=== PATIENT | male | born 1955 | race Caucasian/White ===

== ENCOUNTER → 2017-09-12 | Outpatient (CLI) | payer OTHER ==
[~2017-09-12] MED LIST: ALBU90OI; Advil200 M1 PO; FISH1000 PO; Miralax17 GM PO; Multivitamin1 EAC1 PO; Norco 10-325 T1 EACH PO; Omeprazole20 M1 PO; Prilosec Otc20 MG PO; Vitamin C1000 M1 PO; Zofran Odt4 MG PO
[2017-09-12 12:25] LABS: BASOPHILS ABSOLUTE AUTO 0.04 K/mm3 (0.00-0.23); BASOPHILS PERCENT AUTO 0 % (0-2); EOSINOPHILS ABSOLUTE AUTO 0.02 K/mm3 (0.00-0.68); EOSINOPHILS PERCENT AUTO 0 % (0-6); Hematocrit 48.5 % (37.0-53.0); Hemoglobin 16.5 g/dL (13.5-17.5); IMMATURE GRAN ABSOLUTE AUTO 0.03 K/mm3 (0.00-0.10); IMMATURE GRAN PERCENT AUTO 0 % (0-1); LYMPHOCYTES ABSOLUTE AUTO 0.74 K/mm3 (0.84-5.20); LYMPHOCYTES PERCENT AUTO 5 % (21-46); MONOCYTES ABSOLUTE AUTO 0.51 K/mm3 (0.16-1.47); MONOCYTES PERCENT AUTO 4 % (4-13); Mean Corpuscular HGB 29.8 pg (26.0-34.0); Mean Corpuscular Volume 88 fL (80-100); Mean Platelet Volume 9.5 fL (9.1-12.4); NEUTROPHILS ABSOLUTE AUTO 12.46 K/mm3 (1.96-9.15); NEUTROPHILS PERCENT AUTO 90 % (41-73); Platelet Count 235 K/mm3 (150-400); RDW Coefficient Variation 12.5 % (11.7-14.2); RDW Standard Deviation 39.8 fL (35.1-46.3); Red Blood Cell Count 5.53 M/mm3 (4.30-5.90)
[2017-09-12 12:38] LABS: Alanine Aminotransfer (ALT/SGP 37 U/L (12-78); Albumin, Blood 4.1 g/dL (3.4-5.0); Albumin/Globulin Ratio 1.1 (0.8-1.8); Alk Phos 102 U/L (40-126); Anion Gap 6 mmol/L (6-16); Aspartate Aminotrans (AST/SGOT 23 U/L (12-37); Bilirubin, Total 0.6 mg/dL (0.1-1.0); Blood Urea Nitrogen 22 mg/dL (8-24); CO2, Blood 29 mmol/L (21-32); Calcium, Blood 9.5 mg/dL (8.5-10.1); Chloride, Blood 101 mmol/L (98-108); Globulin, Blood 3.8 g/dL (2.2-4.0); Glomerular Filtration Rate >60 (60-); Glucose, Blood 108 mg/dL (70-99); Sodium, Blood 136 mmol/L (136-145); Total Protein, Blood 7.9 g/dL (6.4-8.2)
== END | disposition home or self-care (01) ==
LOC: LAB EV 12:18
PROVIDERS: Physician Assistant Surgical
DX: R10.9 Unspecified abdominal pain (principal)
CPT/HCPCS: 80053; 83690; 85025

== ENCOUNTER 2017-09-14 08:57 | Emergency (ER) | payer OTHER ==
[~2017-09-14] VITALS: Ht 177.8 cm; Wt 68.0 kg
[~2017-09-14 08:57] MED LIST changes: -Miralax17 GM PO; -Prilosec Otc20 MG PO; -Zofran Odt4 MG PO
[2017-09-14 10:04] LABS: BASOPHILS ABSOLUTE AUTO 0.03 K/mm3 (0.00-0.23); BASOPHILS PERCENT AUTO 0 % (0-2); EOSINOPHILS ABSOLUTE AUTO 0.03 K/mm3 (0.00-0.68); EOSINOPHILS PERCENT AUTO 0 % (0-6); Hematocrit 47.1 % (37.0-53.0); Hemoglobin 15.7 g/dL (13.5-17.5); IMMATURE GRAN ABSOLUTE AUTO 0.02 K/mm3 (0.00-0.10); IMMATURE GRAN PERCENT AUTO 0 % (0-1); LYMPHOCYTES ABSOLUTE AUTO 0.68 K/mm3 (0.84-5.20); LYMPHOCYTES PERCENT AUTO 7 % (21-46); MONOCYTES ABSOLUTE AUTO 0.54 K/mm3 (0.16-1.47); MONOCYTES PERCENT AUTO 6 % (4-13); Mean Corpuscular HGB 29.4 pg (26.0-34.0); Mean Corpuscular HGB Conc 33.3 g/dL (31.5-36.5); Mean Corpuscular Volume 88 fL (80-100); Mean Platelet Volume 9.5 fL (9.1-12.4); NEUTROPHILS ABSOLUTE AUTO 7.84 K/mm3 (1.96-9.15); NEUTROPHILS PERCENT AUTO 86 % (41-73); Platelet Count 208 K/mm3 (150-400); RDW Coefficient Variation 12.2 % (11.7-14.2); Red Blood Cell Count 5.34 M/mm3 (4.30-5.90); White Blood Cell Count 9.14 K/mm3 (4.00-11.30)
[2017-09-14 10:22] LABS: Alanine Aminotransfer (ALT/SGP 25 U/L (12-78); Albumin, Blood 3.2 g/dL (3.4-5.0); Albumin/Globulin Ratio 0.7 (0.8-1.8); Alk Phos 89 U/L (50-136); Anion Gap 7 mmol/L (6-16); Aspartate Aminotrans (AST/SGOT 19 U/L (12-37); Bilirubin, Total 0.8 mg/dL (0.1-1.0); Blood Urea Nitrogen 23 mg/dL (8-24); CO2, Blood 26 mmol/L (21-32); Calcium, Blood 8.6 mg/dL (8.5-10.1); Chloride, Blood 105 mmol/L (98-108); Creatinine, Blood 0.79 mg/dL (0.60-1.20); Globulin, Blood 4.5 g/dL (2.2-4.0); Glomerular Filtration Rate >60 (60-); Glucose, Blood 95 mg/dL (70-99); Potassium, Blood 3.8 mmol/L (3.5-5.5); Sodium, Blood 138 mmol/L (136-145); Total Protein, Blood 7.7 g/dL (6.4-8.2)
[2017-09-14] MEDS ORDERED: Zofran Odt4 MG PO (10:50)
[2017-09-14] MEDS ORDERED: Miralax17 GM PO (10:50)
[2017-09-14 11:48] LABS: Source, Urine Clean Catch
[2017-09-14 11:54] LABS: Bilirubin, Urine Neg (Neg); Blood, Urine 2+ (Neg); Glucose Qualitative, Urine Neg (Neg); Ketones, Urine 3+ (Neg); Leukocyte Esterase, Urine 1+ (Neg); Nitrite, Urine Neg (Neg); Protein, Urine 2+ (Neg); Urobilinogen, Urine 1+ (Normal)
[2017-09-14 12:13] LABS: Appearance, Urine Hazy (Clear); Color, Urine Yellow (P-Yellow)
[2017-09-14 12:14] LABS: Red Blood Cells, Urine Not Seen /hpf (0-2); White Blood Cells, Urine 0-2 /hpf (0-5)
[2017-09-14 12:15] LABS: Bacteria Few /hpf; Mucus Heavy (0-Heavy); Squamous Epithelial Cells Not Seen /hpf (Few)
[2017-09-14] MEDS ORDERED: Prilosec Otc20 MG PO (13:18)
== END 2017-09-14 13:30 | disposition home or self-care (01) ==
LOC: ER 08:57
PROVIDERS: Emergency Medicine
DX: R11.2 Nausea with vomiting, unspecified (principal); Z87.891 Personal history of nicotine dependence
CPT/HCPCS: 36415; 80053; 81001; 83690; 85025; 96361; 96374; 96375; 99283; J1200; J1630; J2405; J2765; J7030

== ENCOUNTER 2018-11-18 08:25 | Day surgery (SDC) | payer OTHER ==
[~2018-11-18] VITALS: Ht 175.3 cm; Wt 70.8 kg
[~2018-11-18 08:25] MED LIST changes: +Miralax17 GM PO; +Prilosec Otc20 MG PO; +Zofran Odt4 MG PO
== END 2018-11-18 11:22 | disposition home or self-care (01) ==
LOC: ORSCSDS 08:25
PROVIDERS: Internal Medicine Gastroenterology
PROC: 0DB58ZX Excision of Esophagus, Via Natural or Artificial Opening Endoscopic, Diagnostic (ICD-10-PCS; principal; 2018-11-18 09:45)
PROC: 0DB68ZX Excision of Stomach, Via Natural or Artificial Opening Endoscopic, Diagnostic (ICD-10-PCS; principal; 2018-11-18 09:45)
PROC: 0DJD8ZZ Inspection of Lower Intestinal Tract, Via Natural or Artificial Opening Endoscopic (ICD-10-PCS; principal; 2018-11-18 09:45)
DX: K21.9 Gastro-esophageal reflux disease without esophagitis (principal); K22.70 Barrett's esophagus without dysplasia; K44.9 Diaphragmatic hernia without obstruction or gangrene; K29.60 Other gastritis without bleeding; K57.30 Diverticulosis of large intestine without perforation or abscess without bleeding; R19.5 Other fecal abnormalities; F17.210 Nicotine dependence, cigarettes, uncomplicated
CPT/HCPCS: 87081; 88305; J2405; J2704; J7120

== ENCOUNTER 2022-01-25 07:46 | Day surgery (SDC) | payer MEDICARE ==
[~2022-01-25] VITALS: Ht 175.3 cm; Wt 72.2 kg
--- NOTE | 2022-01-25 08:24 | NUR ---
01/25/22 0824 PELON FERNANDEZ 2 ATTEMPTS AT IV. FIRST ATTEMPT BY MA IN R HAND UNABLE TO ADVANCE. SECOND ATTEMPT BY MA IN R FOREARM SUCCESSFUL.
== END 2022-01-25 09:38 | disposition home or self-care (01) ==
LOC: ORSCSDS 07:46
PROVIDERS: Internal Medicine Gastroenterology
PROC: 0DB58ZX Excision of Esophagus, Via Natural or Artificial Opening Endoscopic, Diagnostic (ICD-10-PCS; principal; 2022-01-25 09:00)
DX: K22.70 Barrett's esophagus without dysplasia (principal); F17.210 Nicotine dependence, cigarettes, uncomplicated; Z79.899 Other long term (current) drug therapy
CPT/HCPCS: 88305; 88312; J2704; J7120

== ENCOUNTER 2025-01-28 10:47 | Inpatient (IN) | payer OTHER ==
[2025-01-28] VITALS (37 sets, daily range): BP systolic 70–119; BP diastolic 29–91
[~2025-01-28] VITALS: Ht 177.8 cm; Wt 71.7 kg
[~2025-01-28 10:47] MED LIST changes: +TAMS.4ER PO
[2025-01-28 11:07] LABS: Calcium, Ionized (POC) 1.28 mmol/L (1.10-1.46); Chloride (POC) 104 mmol/L (98-108); Creatinine (POC) 1.3 mg/dL (0.8-1.3); Glucose (ISTAT POC) 375 mg/dL (70-99); Hematocrit (POC) 40.0 % (41.0-53.0); Hemoglobin (POC) 13.6 g/dL (13.5-17.5); Potassium (POC) 2.9 mmol/L (3.5-5.5); Sodium (POC) 140 mmol/L (135-148); Total CO2 (POC) 21 mmol/L (21-32)
[2025-01-28] MEDS ORDERED: Amiodarone HCl 450 MG in NS 250 ML IV SCH ×2 (11:15→19:05)
[2025-01-28] MEDS ORDERED: EPINEPHrine HCL 4 MG in NS 250 ML IV SCH (11:15)
[2025-01-28 11:19] LABS: pH Blood Venous 7.02 (7.34-7.37)
[2025-01-28 11:49] LABS: Hematocrit 41.3 % (37.0-53.0); Hemoglobin 13.2 g/dL (13.5-17.5); Mean Corpuscular HGB Conc 32.0 g/dL (31.5-36.5); Mean Corpuscular Volume 94 fL (80-100); NRBC ABSOLUTE 0.07 K/mm3 (0.00-0.02); NRBC Auto 1.3 /100 WBC (0.0-0.2); Platelet Count 172 K/mm3 (150-400); RDW Coefficient Variation 12.7 % (11.7-14.2); RDW Standard Deviation 43.8 fL (35.1-46.3)
[2025-01-28] MEDS ORDERED: Midazolam HCl 1MG / ML 2ML Vial IV ONE ×2 (11:50→16:24)
[2025-01-28 11:56] LABS: Alanine Aminotransfer (ALT/SGP 192.0 U/L (12-78); Albumin, Blood 2.4 g/dL (3.4-5.0); Albumin/Globulin Ratio 0.9 (0.8-1.8); Anion Gap 16.0 mmol/L (3-11); Aspartate Aminotrans (AST/SGOT 206.0 U/L (12-37); Bilirubin, Total 0.3 mg/dL (0.1-1.0); Blood Urea Nitrogen 22.0 mg/dL (8-24); CO2, Blood 22.0 mmol/L (21-32); Calcium, Blood 9.6 mg/dL (8.5-10.1); Chloride, Blood 108.0 mmol/L (98-108); Creatinine, Blood 0.98 mg/dL (0.60-1.20); Globulin, Blood 2.6 g/dL (2.2-4.0); Glucose, Blood 335.0 mg/dL (70-99); Magnesium, Blood 10.9 mg/dL (1.6-2.4); Potassium, Blood 3.6 mmol/L (3.5-5.5); Sodium, Blood 142.0 mmol/L (136-145); Total Protein, Blood 5.0 g/dL (6.4-8.2)
[2025-01-28] MEDS ORDERED: NS 1,000 ML IV ONE ×2 (11:59→12:35)
[2025-01-28] MEDS ORDERED: Phenylephrine HCl 100 MCG/ML-NS 10MLSYR (1MG/10ML) ONE (12:01)
[2025-01-28] MEDS ORDERED: SODIUM CHLORIDE IV ONE (12:22)
[2025-01-28] MEDS ORDERED: TIROFIBAN IV ONE (12:22)
[2025-01-28] MEDS ORDERED: [UNRECOGNIZED DRUG - OTHER] IV ONE (12:22)
[2025-01-28 12:28] LABS: BAND PERCENT MAN 12 % (0-8); BASOPHILS ABSOLUTE MAN 0.05 K/mm3 (0.00-0.23); BASOPHILS PERCENT MAN 1 % (0-2); EOSINOPHILS ABSOLUTE MAN 0.05 K/mm3 (0.00-0.68); EOSINOPHILS PERCENT MAN 1 % (0-6); LYMPHOCYTES ABSOLUTE MAN 1.73 K/mm3 (0.84-5.20); LYMPHOCYTES PERCENT MAN 32 % (21-46); METAMYELOCYTE ABSOLUTE MAN 0.43 K/mm3 (0.00-0.00); METAMYELOCYTE PERCENT MAN 8 % (0-0); MONOCYTES ABSOLUTE MAN 0.16 K/mm3 (0.16-1.47); MONOCYTES PERCENT MAN 3 % (4-13); NEUTROPHILS ABSOLUTE MAN 2.98 K/mm3 (1.96-9.15); SEG NEUTROPHILS PERCENT MAN 43 % (41-73)
[2025-01-28] MEDS ORDERED: NS 250 ML IV ONE (12:35)
[2025-01-28] MEDS ORDERED: Heparin Sodium 1000 Units/ML 10ML MDV ONE (12:35)
[2025-01-28] MEDS ORDERED: Nitroglycerin 2 MG/20 ML BTL ONE (12:36)
[2025-01-28 12:55] LABS: Anti-Xa UFH, PHA Monitoring <0.10 IU/mL; Prothrombin Time Results 12.6 Sec (9.7-11.5)
[2025-01-28] MEDS ORDERED: Verapamil HCL 2.5 MG/ML 2ML Injection ONE (12:59)
[2025-01-28 14:03] LABS: pH Blood Venous 7.29 (7.34-7.37)
[2025-01-28 14:12] LABS: U Amphetamine Screen Not Detected; U Barbituate Screen Not Detected; U Benzodiazapine Screen Not Detected; U Buprenorphine Screen Not Detected; U Cannabinoids Screen DETECTED; U Cocaine Screen Not Detected; U Methadone Screen Not Detected; U Methamphetamine Screen Not Detected; U Opiates Screen Not Detected; U Oxycodone Screen Not Detected; U Phencyclidine Screen Not Detected
[2025-01-28] MEDS ORDERED: Calcium Chloride 10% 1,000 MG in NS 50 ML IV ONE (14:15)
[2025-01-28 14:51] LABS: Alanine Aminotransfer (ALT/SGP 340.0 U/L (12-78); Albumin, Blood 3.4 g/dL (3.4-5.0); Albumin/Globulin Ratio 0.9 (0.8-1.8); Anion Gap 14.0 mmol/L (3-11); Aspartate Aminotrans (AST/SGOT 624.0 U/L (12-37); Bilirubin, Total 0.7 mg/dL (0.1-1.0); Blood Urea Nitrogen 25.0 mg/dL (8-24); CO2, Blood 19.0 mmol/L (21-32); Calcium, Blood 8.5 mg/dL (8.5-10.1); Chloride, Blood 111.0 mmol/L (98-108); Creatinine, Blood 1.05 mg/dL (0.60-1.20); Globulin, Blood 3.6 g/dL (2.2-4.0); Glucose, Blood 200.0 mg/dL (70-99); Phosphorus, Blood 3.3 mg/dL (2.5-4.9); Potassium, Blood 4.1 mmol/L (3.5-5.5); Sodium, Blood 140.0 mmol/L (136-145); Total Protein, Blood 7.0 g/dL (6.4-8.2)
[2025-01-28] MEDS ORDERED: Cetylpyridinium Chloride 1 EA MISC MT SCH ×2 (15:05→20:00)
[2025-01-28 15:16] LABS: C-REACTIVE PROTEIN, EXT RANGE 0.301 mg/dL (0.000-0.300)
[2025-01-28 15:26] LABS: CHOL/HDL RATIO 2.8; Cholesterol 182 mg/dL (50-200); HDL Cholesterol 64 mg/dL (>39); LDL/HDL RATIO 1.6; Low Density Lipoprotein Chol 102 mg/dL (0-110); Thyroid Stimulating Hormone 3.140 uIU/mL (0.360-4.800); Triglycerides 82 mg/dL (30-160); Very Low Density Lipoprot Chol 16 mg/dL (6-32)
--- NOTE | 2025-01-28 15:29 | NUR ---
"Spiritual Care | family Support Met with family in the hallway waiting area. Facilitaed some life review and introduced myself. One of the family memebers recognized this production recorder from a previous visit of another family member. Answered questions, and sought to normalize the Pt. experience. Spouse and (possibly) daughter both verbalzied gratitude for the spiritual care visit."
[2025-01-28] MEDS ORDERED: Hydrogen Peroxide 1.5 % Solution MT SCH ×2 (16:00)
[2025-01-28] MEDS ORDERED: Sodium Bicarb 8.4% 50 mEq Syringe IV ONE (16:24)
[2025-01-28] MEDS ORDERED: Magnesium Sulfate 500 MG / ML 2ML Vial IV ONE (16:24)
[2025-01-28] MEDS ORDERED: Heparin Sodium,Porcine 5,000 UNIT/0.5 ML SDV SC ONE (16:24)
[2025-01-28] MEDS ORDERED: AMLO5 PO (16:53)
[2025-01-28] MEDS ORDERED: TADA10TA PO (16:54)
[2025-01-28] MEDS ORDERED: Insulin Human Lispro 100 Units/ML 3ML Syringe SC SCH (18:00)
--- NOTE | 2025-01-28 18:47 | NUR ---
Summary. Pt arrived to ICU on ventilator with levophed and propofol infusing. Pt continues on vent. Propofol paused at 1745 for sedation vacation. Levophed infusion unchanged, remains at 12 mcg/min. OG tube in place, to low continuous suction. PICC line placed for central access. Temp probe andrews draining to gravity. Cooling blanket on pt for temperature management, see protocol. Family at bedside all afternoon. See chart for further details.
[2025-01-28] MEDS ORDERED: Amiodarone HCl 150 MG in NS 100 ML IV ONE (19:00)
--- NOTE | 2025-01-28 21:15 | NUR ---
MD UPDATE DR BARTLETT AT BS, UPDATED WITH PT STATUS, RUNS OF V-TACH, LEVO AT 12MCG, AMIO ADDITIONAL BOLUS GIVEN PER ORDER AND MAINT GTT AT 1MG INFUSING. FAMILY AT BS AND UPDATED BY . 12-LEAD EKG DONE ON PT PER DR BARTLETT. PT TEMP RISING ICE PACKS AND COLD CLOTHS PLACED ALONG WITH CONTINUATION OF COOLING BLANKET TO KEEP TEMP <96.8. WILL CONTINUE TO MONITOR AND UPDATE DR WITH ANY CHANGES.
[2025-01-28] MEDS ORDERED: Vasopressin 20 UNITS in NS 100 ML IV SCH (23:50)
[2025-01-29] VITALS (76 sets, daily range): BP systolic 79–130; BP diastolic 5–97
--- NOTE | 2025-01-29 | NUR ---
MD UPDATE DR BARTLETT UPDATED WITH PT STATUS, LEVOPHED NOW UP TO 20 MCG TO SUSTAIN MAP >65. ORDERS RECEIVED FOR VASOPRESSIN AND MILRINONE AND ARE IN PROCESS. CONTINUING TO MONITOR.
--- NOTE | 2025-01-29 01:00 | NUR ---
TR BAND REMAINING 2 CC OF AIR REMOVED FROM TR BAND.
[2025-01-29] MEDS ORDERED: FentaNYL Citrate 50 MCG/ML 2 ML Injection IV PRN (02:05)
--- NOTE | 2025-01-29 02:34 | NUR ---
MD NOTIFICATION DR HICKMAN NOTIFIED OF PT STATUS, ON PROPOFOL 50 MCG AND STILL TACHYPNIC ON VENT, RR MID 30S, GRIMACING, VERY TENSE, DIFFICULT TO GET ACCURATE BP READINGS. ORDER RECEIVED FOR FENTANYL PUSHES PRN WITH GOOD RESULT. PT RR BACK TO LOW TO MID 20'S, HEIDE WELL, NO S/SX PAIN PER CPOT S/P FENTANYL. BP 107/77 ON CURRENT GTT LEVELS (SEE CRIT CARE FLOWSHEET).
[2025-01-29 04:00] LABS: BASOPHILS ABSOLUTE AUTO 0.04 K/mm3 (0.00-0.23); BASOPHILS PERCENT AUTO 0 % (0-2); EOSINOPHILS ABSOLUTE AUTO 0.01 K/mm3 (0.00-0.68); EOSINOPHILS PERCENT AUTO 0 % (0-6); Hematocrit 45.7 % (37.0-53.0); Hemoglobin 15.5 g/dL (13.5-17.5); IMMATURE GRAN ABSOLUTE AUTO 0.11 K/mm3 (0.00-0.10); IMMATURE GRAN PERCENT AUTO 1 % (0-1); LYMPHOCYTES ABSOLUTE AUTO 1.06 K/mm3 (0.84-5.20); LYMPHOCYTES PERCENT AUTO 5 % (21-46); MONOCYTES ABSOLUTE AUTO 1.27 K/mm3 (0.16-1.47); MONOCYTES PERCENT AUTO 6 % (4-13); Mean Corpuscular HGB Conc 33.9 g/dL (31.5-36.5); NEUTROPHILS ABSOLUTE AUTO 19.00 K/mm3 (1.96-9.15); NEUTROPHILS PERCENT AUTO 89 % (41-73); NRBC ABSOLUTE 0.00 K/mm3 (0.00-0.02); NRBC Auto 0.0 /100 WBC (0.0-0.2); Platelet Count 267 K/mm3 (150-400); RDW Coefficient Variation 13.3 % (11.7-14.2); RDW Standard Deviation 43.2 fL (35.1-46.3)
[2025-01-29 04:01] LABS: Mean Corpuscular Volume 88 fL (80-100)
--- NOTE | 2025-01-29 04:04 | NUR ---
TR BAND TR BAND D/C'D, SITE BENIGN, GAUZE AND COBAN PLACED.
[2025-01-29 04:19] LABS: Alanine Aminotransfer (ALT/SGP 313.0 U/L (12-78); Albumin, Blood 2.9 g/dL (3.4-5.0); Albumin/Globulin Ratio 0.9 (0.8-1.8); Anion Gap 12.0 mmol/L (3-11); Aspartate Aminotrans (AST/SGOT 733.0 U/L (12-37); Bilirubin, Total 0.5 mg/dL (0.1-1.0); Blood Urea Nitrogen 32.0 mg/dL (8-24); CO2, Blood 18.0 mmol/L (21-32); Calcium, Blood 8.2 mg/dL (8.5-10.1); Chloride, Blood 118.0 mmol/L (98-108); Creatinine, Blood 1.49 mg/dL (0.60-1.20); Globulin, Blood 3.3 g/dL (2.2-4.0); Glucose, Blood 185.0 mg/dL (70-99); Magnesium, Blood 2.4 mg/dL (1.6-2.4); Phosphorus, Blood 2.4 mg/dL (2.5-4.9); Potassium, Blood 4.9 mmol/L (3.5-5.5); Sodium, Blood 143.0 mmol/L (136-145); Total Protein, Blood 6.2 g/dL (6.4-8.2)
[2025-01-29 05:02] LABS: pH Blood Arterial 7.38 (7.35-7.45)
--- NOTE | 2025-01-29 06:46 | NUR ---
SHIFT SUMMARY PT REMAINS ON VENT, SEDATED WITH PROPOFOL AND PRN FENTANYL. NOT FOLLOWING COMMANDS, BUT WITHDRAWS TO PAIN, OCC BAHENA SPONT. COOLING BLANKET STILL IN USE TO KEEP TEMP 96.8 OR LESS, LABILE, DIFFICULT TO KEEP AT DESIRED TEMP RUNS OF V-TACH HAVE BECOME MUCH MORE INFREQUENT. DR BARTLETT UPDATED T/O SHIFT WITH STATUS CHANGES REQUIRING ADDITION OF VASOPRESSIN AND MILRINONE TO LEVOPHED AND AMIODARONE. ABLE TO TITRATE DOWN LEVOPHED, CURRENTLY AT 16 MCG. SEE CRIT CARE FLOWSHEET FOR CURRENT GTT RATES. WILL UPDATE DAY RN WITH ALL OUTSTANDING ISSUES AND PROBLEMS TO DATE. VSS AT THIS TIME.
[2025-01-29] MEDS ORDERED: NS 500 ML IV SCH (12:40)
[2025-01-29] MEDS ORDERED: NS 250 ML IV ONE (12:54)
[2025-01-29] MEDS ORDERED: Heparin Sodium 1000 Units/ML 10ML MDV ONE ×2 (12:54→13:44)
[2025-01-29] MEDS ORDERED: NS 1,000 ML IV ONE ×3 (12:54→13:45)
[2025-01-29] MEDS ORDERED: NS 500 ML IV ONE (14:18)
[2025-01-29 18:42] LABS: ANGIOTENSIN CONVERTING ENZYME 30 U/L (16-85)
--- NOTE | 2025-01-29 18:48 | NUR ---
Summary. Pt continues intubated and sedated. PA catheter placed R/IJ site by Dr. Meade today along with R/radial arterial pressure line. Pressors titrated down, see flowsheet. Cooling blanket in place. Reassessments unchanged, Q2 turns. Family updated before and after agriculture laborer intervention. See chart for further details.
--- NOTE | 2025-01-29 19:00 | NUR ---
PA CATHETER PA CATHETER INSERTED IN SUPERVISOR REAL ESTATE OFFICE, RIGHT NECK, 55CM INSERTION LENGTH NOTED. DRSG DRY AND INTACT, SITE BENIGN. HEMODYNAMIC CALCS ORDERED QSHIFT.
[2025-01-29 19:19] LABS: Alanine Aminotransfer (ALT/SGP 291.0 U/L (12-78); Albumin, Blood 3.2 g/dL (3.4-5.0); Albumin/Globulin Ratio 0.9 (0.8-1.8); Anion Gap 14.0 mmol/L (3-11); Aspartate Aminotrans (AST/SGOT 661.0 U/L (12-37); Bilirubin, Total 0.8 mg/dL (0.1-1.0); Blood Urea Nitrogen 36.0 mg/dL (8-24); CO2, Blood 18.0 mmol/L (21-32); Calcium, Blood 8.4 mg/dL (8.5-10.1); Chloride, Blood 115.0 mmol/L (98-108); Creatinine, Blood 1.66 mg/dL (0.60-1.20); Globulin, Blood 3.4 g/dL (2.2-4.0); Glucose, Blood 155.0 mg/dL (70-99); Magnesium, Blood 2.1 mg/dL (1.6-2.4); Potassium, Blood 3.5 mmol/L (3.5-5.5); Sodium, Blood 143.0 mmol/L (136-145); Total Protein, Blood 6.6 g/dL (6.4-8.2)
[2025-01-29] MEDS ORDERED: Amiodarone HCl 450 MG in NS 250 ML IV SCH (19:50)
--- NOTE | 2025-01-29 19:50 | NUR ---
MD UPDATE DR AMOR UPDATED WITH PT STATUS INCLUDING DIFFICULTY OBTAINING PAP FROM SWAN CATHETER. ORDERS RECEIVED AND PENDING. VSS AT THIS TIME ON CURRENT GTT LEVELS. SEE CRIT CARE FLOWSHEET.
[2025-01-29] MEDS ORDERED: Acetaminophen 160MG / 5ML 10.15 UDC PO PRN (22:55)
--- NOTE | 2025-01-29 23:20 | NUR ---
ART LINE UNABLE TO DRAW FROM A-LINE OR OBTAIN WAVEFORM, LINE D/C'D. PRESSURE HELD FOR 15 MIN, NO BLEEDING OR HEMATOMA NOTED AFTER PRESSURE HELD. DRESSED WITH PETROLEUM GAUZE UNDER DRY GAUZE WITH TRANSPARENT TEGADERM.
[2025-01-30] VITALS (93 sets, daily range): BP systolic 87–139; BP diastolic 63–123
[2025-01-30 03:35] LABS: BASOPHILS ABSOLUTE AUTO 0.03 K/mm3 (0.00-0.23); BASOPHILS PERCENT AUTO 0 % (0-2); EOSINOPHILS ABSOLUTE AUTO 0.00 K/mm3 (0.00-0.68); EOSINOPHILS PERCENT AUTO 0 % (0-6); Hematocrit 43.9 % (37.0-53.0); Hemoglobin 14.9 g/dL (13.5-17.5); IMMATURE GRAN ABSOLUTE AUTO 0.06 K/mm3 (0.00-0.10); IMMATURE GRAN PERCENT AUTO 1 % (0-1); LYMPHOCYTES ABSOLUTE AUTO 0.91 K/mm3 (0.84-5.20); LYMPHOCYTES PERCENT AUTO 7 % (21-46); MONOCYTES ABSOLUTE AUTO 0.58 K/mm3 (0.16-1.47); MONOCYTES PERCENT AUTO 4 % (4-13); Mean Corpuscular HGB Conc 33.9 g/dL (31.5-36.5); Mean Corpuscular Volume 87 fL (80-100); NEUTROPHILS ABSOLUTE AUTO 11.54 K/mm3 (1.96-9.15); NEUTROPHILS PERCENT AUTO 88 % (41-73); NRBC ABSOLUTE 0.00 K/mm3 (0.00-0.02); NRBC Auto 0.0 /100 WBC (0.0-0.2); Platelet Count 208 K/mm3 (150-400); RDW Coefficient Variation 13.4 % (11.7-14.2); RDW Standard Deviation 42.1 fL (35.1-46.3)
[2025-01-30 03:57] LABS: Alanine Aminotransfer (ALT/SGP 232.0 U/L (12-78); Albumin, Blood 2.8 g/dL (3.4-5.0); Albumin/Globulin Ratio 0.8 (0.8-1.8); Anion Gap 11.0 mmol/L (3-11); Aspartate Aminotrans (AST/SGOT 452.0 U/L (12-37); Bilirubin, Total 0.6 mg/dL (0.1-1.0); Blood Urea Nitrogen 35.0 mg/dL (8-24); CO2, Blood 22.0 mmol/L (21-32); Calcium, Blood 7.7 mg/dL (8.5-10.1); Chloride, Blood 112.0 mmol/L (98-108); Creatinine, Blood 1.96 mg/dL (0.60-1.20); Globulin, Blood 3.7 g/dL (2.2-4.0); Glucose, Blood 153.0 mg/dL (70-99); Magnesium, Blood 2.0 mg/dL (1.6-2.4); Phosphorus, Blood 3.8 mg/dL (2.5-4.9); Potassium, Blood 3.5 mmol/L (3.5-5.5); Sodium, Blood 141.0 mmol/L (136-145); Total Protein, Blood 6.5 g/dL (6.4-8.2)
--- NOTE | 2025-01-30 06:41 | NUR ---
SHIFT SUMMARY PT CONTINUES ON VENT WITH PROPOFOL FOR SEDATION AND PRN FENTANYL. NO EYE OPENING OR FOLLOWING COMMANDS, NO RESPONSE TO PAIN. OCC HICCUPS ON VENT NOTED. CONTINUES WITH FEW PVC'S T/O SHIFT WITH ONLY A COUPLE SHORT RUNS NOTED. PA CATHETER INSERTED IN TEAM ASSISTANT YEST AND IS WORKING WELL AT THIS TIME. MILRINONE, LEVOPHED, AMIODARONE, LASIX AND PROPOFOL GTTS INFUSING (SEE CRIT CARE FLOWSHEET FOR DETAILS). ABLE TO TITRATE LEVOPHED DOWN TO 2 MCG. RIGHT RADIAL ART LINE STOPPED GIVING A WAVEFORM, UNABLE TO DRAW BLOOD, SO D/C'D. WILL UPDATE DAY RN WITH ALL OUTSTANDING ISSUES AND PROBLEMS TO DATE. VSS AT THIS TIME.
[2025-01-30 12:04] LABS: pH Blood Venous 7.43 (7.34-7.37)
[2025-01-30] MEDS ORDERED: Pantoprazole Sodium 40 MG Injection IV SCH (12:30)
[2025-01-30 12:39] LABS: Alanine Aminotransfer (ALT/SGP 204.0 U/L (12-78); Albumin, Blood 2.8 g/dL (3.4-5.0); Albumin/Globulin Ratio 0.8 (0.8-1.8); Anion Gap 11.0 mmol/L (3-11); Aspartate Aminotrans (AST/SGOT 374.0 U/L (12-37); Bilirubin, Total 1.0 mg/dL (0.1-1.0); Blood Urea Nitrogen 42.0 mg/dL (8-24); CO2, Blood 22.0 mmol/L (21-32); Calcium, Blood 8.0 mg/dL (8.5-10.1); Chloride, Blood 112.0 mmol/L (98-108); Creatinine, Blood 2.07 mg/dL (0.60-1.20); Globulin, Blood 3.7 g/dL (2.2-4.0); Glucose, Blood 148.0 mg/dL (70-99); Potassium, Blood 3.1 mmol/L (3.5-5.5); Sodium, Blood 142.0 mmol/L (136-145); Total Protein, Blood 6.5 g/dL (6.4-8.2)
[2025-01-30] MEDS ORDERED: Potassium Chl 10MEQ/Water100ML 100 ML IV SCH (14:10)
[2025-01-30] MEDS ORDERED: Magnesium Hydroxide Conc 10 ML UDC PT PRN (15:15)
[2025-01-30] MEDS ORDERED: Docusate Sodium Liquid 100 MG UDC PT PRN (15:15)
--- NOTE | 2025-01-30 15:53 | NUR ---
DISCUSSED CASE WITH BSRN. FOAM MOLDER AT BEDSIDE HAVING DISCUSSION WITH PATIENTS FAMILY. SOKE WITH DR. WEEKS THIS AFTERNOON HE UPDATED ME THAT PROGNOSIS HAD BEEN GIVEN TO FAMILY AND THEY MAY NEED A FEW DAYS TO PROCESS THIS INFORMATION BEFORE A GOC CONVERSATION
--- NOTE | 2025-01-30 17:43 | NUR ---
SHIFT SUMMARY PT REMAINS INTUBATED THIS SHIFT. PROPOFOL TURNED OFF THIS MORNING AND PT HAS REMAIND OFF SEDATION THROUGHOUT THE SHIFT. PT DOES NOT HAVE ANY RESPONSE TO NOXIOUS STIMULI OR ANY PURPOSEFUL MOVEMENTS NOTED. NO CORNEAL REFLEXES NOTED, NO GAG. PT WITH OCCASIONAL COUGH AND JERKING MOVEMENTS NOTED. EEG AND REPEAT HEAD CT DONE THIS AFTERNOON. DR CARTER UPDATED PT FAMILY WITH CT RESULTS. PT WITH PICC TO SKIP C/D/I. MILRINONE TITRATED DOWN TO 0.3 MCG/KG/MIN PER DR BARTLETT. LEVOPHED TITRATED OFF THIS SHIFT. PA CATHETER TO RIJ REMAINS AT 55 CM WITH DRESSING C/D/I. CARDIAC CALCS PERFORMED THIS MORNING, DR BARTLETT PERFORMED PAWP THIS AFTERNOON. PIV'S SALINE LOCKED. OGT REMAINS IN PLACE, TF STARTED PER ORDERS THIS AFTERNOON. BOYKIN TEMP PROBE REMAINS IN PLACE WITH LARGE AMOUNT OF CLEAR YELLOW URINE OUTPUT NOTED THIS SHIFT. COOLING BLANKET REMAINS IN PLACE. VITALS SIGNS STABLE THROUGHOUT THE SHIFT. VENT SETTINGS CURRENTLY PRESSURE SUPPORT OF 12/5, FIO2 30%. PT WITH LARGE AMOUNT OF THICK ETT SECRETIONS WITH SUCTION. RIGHT RADIAL SITE REMAINS C/D/I. WILL CONTINUE TO MONITOR AND REPORT OFF TO ONCOMING RN.
--- NOTE | 2025-01-30 20:56 | NUR ---
ASSUMPTION OF CARE: ASSUMED CARE OF PT AT 1900. PT INTUBATED, NO SEDATION. CURRENTLY UNRESPONSIVE TO PAINFUL/VERBAL STIMULI. NOT FOLLOWING COMMANDS. NO CORNEAL RESPONSE NOTED, NO GAG OR SWALLOW. UPWARD LEFT GAZE NOTED BILATERALLY. RIGHT PUPIL NON-REACTIVE. LEFT PUPIL SLUGGISH. PT HAS HICCUP LIKE MOVEMENTS NOTED AT TIMES. VENT SETTINGS PS, PEEP 5.0, FIO2 30%. SPO2 HIGH 90'S. LUNGS CLEAR. THICK, COPIOUS SECRETIONS SUCTIONED WITH WHAT LOOKS LIKE TUBE FEED CONTENTS. TUBE FEED ON STANDBY. OGT CLAMPED. NATURAL GAS PLANT SUPERVISOR IN PLACE, SR WITH PVC'S, HR 80'S. SBP 118-130'S. MILRINONE AT 0.3 MCG/KG/MIN. AMIODARONE AT 0.5 MG/MIN. 3% SALINE INFUSING AT 30 ML/HR. PICC TO SKIP PATENT. PA CATH TO [facility], AT 55 CM. DRESSING C/D/I. TEMP BOYKIN PATENT AND DRAINING TO GRAVITY. PT TEMP 99.6, COOLING BLANKET ON PT PER PROTOCOL. BED LOCKED.
[2025-01-30] MEDS ORDERED: Heparin Sodium,Porcine 5,000 UNIT/0.5 ML SDV SC SCH (21:00)
[2025-01-30 21:37] LABS: Anion Gap 8.0 mmol/L (3-11); Blood Urea Nitrogen 40.0 mg/dL (8-24); CO2, Blood 24.0 mmol/L (21-32); Calcium, Blood 7.6 mg/dL (8.5-10.1); Chloride, Blood 113.0 mmol/L (98-108); Creatinine, Blood 1.97 mg/dL (0.60-1.20); Glucose, Blood 129.0 mg/dL (70-99); Potassium, Blood 3.4 mmol/L (3.5-5.5); Sodium, Blood 142.0 mmol/L (136-145)
[2025-01-31] VITALS (80 sets, daily range): BP systolic 98–144; BP diastolic 64–101
[2025-01-31 00:25] LABS: Anion Gap 10.0 mmol/L (3-11); Blood Urea Nitrogen 39.0 mg/dL (8-24); CO2, Blood 22.0 mmol/L (21-32); Calcium, Blood 7.8 mg/dL (8.5-10.1); Chloride, Blood 116.0 mmol/L (98-108); Creatinine, Blood 1.83 mg/dL (0.60-1.20); Glucose, Blood 116.0 mg/dL (70-99); Potassium, Blood 3.7 mmol/L (3.5-5.5); Sodium, Blood 144.0 mmol/L (136-145)
[2025-01-31 03:20] LABS: BASOPHILS ABSOLUTE AUTO 0.01 K/mm3 (0.00-0.23); BASOPHILS PERCENT AUTO 0 % (0-2); EOSINOPHILS ABSOLUTE AUTO 0.00 K/mm3 (0.00-0.68); EOSINOPHILS PERCENT AUTO 0 % (0-6); Hematocrit 37.4 % (37.0-53.0); Hemoglobin 12.6 g/dL (13.5-17.5); IMMATURE GRAN ABSOLUTE AUTO 0.01 K/mm3 (0.00-0.10); IMMATURE GRAN PERCENT AUTO 0 % (0-1); LYMPHOCYTES ABSOLUTE AUTO 0.42 K/mm3 (0.84-5.20); LYMPHOCYTES PERCENT AUTO 8 % (21-46); MONOCYTES ABSOLUTE AUTO 0.32 K/mm3 (0.16-1.47); MONOCYTES PERCENT AUTO 6 % (4-13); Mean Corpuscular HGB Conc 33.7 g/dL (31.5-36.5); Mean Corpuscular Volume 87 fL (80-100); NEUTROPHILS ABSOLUTE AUTO 4.76 K/mm3 (1.96-9.15); NEUTROPHILS PERCENT AUTO 86 % (41-73); NRBC ABSOLUTE 0.00 K/mm3 (0.00-0.02); NRBC Auto 0.0 /100 WBC (0.0-0.2); Platelet Count 159 K/mm3 (150-400); RDW Coefficient Variation 13.3 % (11.7-14.2); RDW Standard Deviation 42.4 fL (35.1-46.3)
[2025-01-31 03:43] LABS: Alanine Aminotransfer (ALT/SGP 131.0 U/L (12-78); Albumin, Blood 2.3 g/dL (3.4-5.0); Albumin/Globulin Ratio 0.7 (0.8-1.8); Anion Gap 9.0 mmol/L (3-11); Aspartate Aminotrans (AST/SGOT 204.0 U/L (12-37); Bilirubin, Total 0.7 mg/dL (0.1-1.0); Blood Urea Nitrogen 42.0 mg/dL (8-24); CO2, Blood 21.0 mmol/L (21-32); Calcium, Blood 7.2 mg/dL (8.5-10.1); Chloride, Blood 124.0 mmol/L (98-108); Creatinine, Blood 1.63 mg/dL (0.60-1.20); Globulin, Blood 3.5 g/dL (2.2-4.0); Glucose, Blood 173.0 mg/dL (70-99); Magnesium, Blood 1.8 mg/dL (1.6-2.4); Phosphorus, Blood 2.4 mg/dL (2.5-4.9); Potassium, Blood 3.2 mmol/L (3.5-5.5); Sodium, Blood 151.0 mmol/L (136-145); Total Protein, Blood 5.8 g/dL (6.4-8.2)
[2025-01-31] MEDS ORDERED: NS IV SCH (04:25)
[2025-01-31] MEDS ORDERED: FUROSEMIDE IV SCH (04:25)
[2025-01-31] MEDS ORDERED: Potassium Phosphate Dibasic 15 MM in Dextrose 5% 250 ML IV ONE (05:00)
--- NOTE | 2025-01-31 06:09 | NUR ---
SHIFT SUMMARY: PT RESTARTED ON PROPOFOL THIS SHIFT D/T PT BREATHING 50 BREATHS A MINUTE AND CONTINUALLY ALARMING THE VENTILATOR. PROPOFOL AT 20 MCG/KG/MIN. PT GIVEN FENTANYL PRN T/O THE SHIFT. NO NEURO CHANGES THIS SHIFT. VENT SETTINGS SPONTANEOUS, RATE 15, PEEP 8.0, FIO2 40%. PT HAVING COPIOUS AMOUNTS OF THICK BROWN SECRETIONS. 3% SALINE DECREASED TO 15 ML/HR PER DR. SIEGEL, ATTEMPTED TO CALL DR. CARTER BUT WAS UNABLE TO REACH HIM. AMIODARONE CONTINUES AT 0.5 MG/MIN. MILRINONE AT 0.3 MCG/KG/MIN. MAP >65. HR 80'S IN SR WITH PVC'S. PICC TO SKIP PATENT. TF REMAINS ON SB T/O THE SHIFT. PA CATH TO RIJ REMAINS AT 55 CM. TEMP UP TO 101.5 THIS AM WITH COOLING BLANKET IN PLACE. BOYKIN DRAINING TO GRAVITY. OGT CLAMPED. BED LOCKED.
[2025-01-31 06:29] LABS: Anion Gap 9.0 mmol/L (3-11); Blood Urea Nitrogen 42.0 mg/dL (8-24); CO2, Blood 21.0 mmol/L (21-32); Calcium, Blood 7.2 mg/dL (8.5-10.1); Chloride, Blood 118.0 mmol/L (98-108); Creatinine, Blood 1.63 mg/dL (0.60-1.20); Glucose, Blood 145.0 mg/dL (70-99); Potassium, Blood 3.3 mmol/L (3.5-5.5); Sodium, Blood 145.0 mmol/L (136-145)
[2025-01-31] MEDS ORDERED: Ampicillin Sod/Sulbactam Sod 3 GM in NS 100 ML IV SCH (08:00)
[2025-01-31 09:25] LABS: Anion Gap 9.0 mmol/L (3-11); Blood Urea Nitrogen 41.0 mg/dL (8-24); CO2, Blood 23.0 mmol/L (21-32); Calcium, Blood 7.8 mg/dL (8.5-10.1); Chloride, Blood 119.0 mmol/L (98-108); Creatinine, Blood 1.73 mg/dL (0.60-1.20); Glucose, Blood 142.0 mg/dL (70-99); Potassium, Blood 3.5 mmol/L (3.5-5.5); Sodium, Blood 147.0 mmol/L (136-145)
--- NOTE | 2025-01-31 09:32 | NUR ---
AM NOTE: THIS RN ASSUMED CARE OF PT AT APPROX 0700, BEDSIDE REPORT FROM NOC RN. PT INTUBATED & SEDATED W/ PROPOFOL GTT FOR VENT COMPLIANCE. PROPOFOL INFUSING AT 20MCG/KG/MIN. RASS -5. PT IS NOT RESPONSIVE TO ANY STIMULI, NO MOVEMENT OBSERVED. PUPILS EQUAL & REACTIVE, 2MM, SLUGGISH. UPWARD GAZE. COUGH PRESENT, NO GAG OR SWALLOW. NO RESPONSE TO NAILBED PRESSURE OR TRAPEZIUS SQUEEZE. SPO2 >90% ON VENT, SETTINGS SPO 15/8 40% W/ RR 20-30'S & TV 400-600'S. SPUTUM SAMPLE SENT, THICK LUNA/GREEN SPUTUM SUCTIONED FROM ETT. LS COARSE BILATERALLY. SBP 100-110'S, MAP >65. MILRINONE GTT INFUSING AT 0.3 MCG/KG/MIN. HR 80-100'S, SINUS RHYTHM ON MONITOR. AMIO GTT INFUSING AT 0.5MG/MIN. TMAX 102.2, SECOND COOLING BLANKET APPLIED UNDER PT; CURRENT CORE TEMP 100.4. 3% NACL INFUSING AT 15ML/HR. BOYKIN CATH PATENT & DRAINING YELLOW URINE TO GRAVITY. CHEST XR COMPLETED, OK TO RESTART TF VIA OGT PER DR. CARTER. PICC TO SKIP REMAINS PATENT, INFUSING. PA CATH TO [facility]. PT'S DAUGHTER UPDATED VIA PHONE THIS AM.
[2025-01-31] MEDS ORDERED: Vancomycin (Pharmacy Consult) IV SCH (10:40)
[2025-01-31] MEDS ORDERED: Piperacillin/Tazobactam Sod 3.375 GM in NS 100 ML IV SCH (12:00)
[2025-01-31 12:14] LABS: Anion Gap 10.0 mmol/L (3-11); Blood Urea Nitrogen 41.0 mg/dL (8-24); CO2, Blood 22.0 mmol/L (21-32); Calcium, Blood 7.8 mg/dL (8.5-10.1); Chloride, Blood 120.0 mmol/L (98-108); Creatinine, Blood 1.59 mg/dL (0.60-1.20); Glucose, Blood 129.0 mg/dL (70-99); Potassium, Blood 3.6 mmol/L (3.5-5.5); Sodium, Blood 148.0 mmol/L (136-145)
--- NOTE | 2025-01-31 16:05 | NUR ---
SUPPORTIVE VISIT: JOINT VISIT WITH DR. CARTER, PRIMARY RN AND THIS PC RN. JERMAINE AND DTR CHRISTOPHER PRESENT AT BEDSIDE. PT REMAINS INTUBATED WITH NO MEANINGFUL RESPONSE. DR. CARTER REVIEWED PT'S GRIM PROGNOSIS, TESTING RESULTS AND CURRENT PHYSICAL ASSESSMENT. CODE STATUS WAS REVIEWED WITH AND DTR. REPORTS PT WOULD NOT WANT HEROIC MEASURES, THEN PROVIDED A COPY OF PT'S ADVANCE DIRECTIVE. ELECTED TO CHANGE PT'S CODE STATUS TO DNR TO ALIGN WITH PT'S WISHES. VERBALIZED, "I KNOW, I HAVE TO LET HIM GO." SHE DOES NOT WANT TO WITHDRAWL CARE AT THIS TIME. SHE WANTS TO ALLOW FAMILY FROM [place] TO COME SEE PT. ESPECIALLY PT'S SISTERS. AT CONCLUSION OF VISIT, JERMAINE TALKED ABOUT PT'S DOGS BEING HIS WORLD. "HE CALLS THEM HIS LITTLE BOY AND HIS LITTLE GIRL. THEY ARE WAITING FOR HIM AT THE DOOR. DOGS UNDERSTAND . THEY DON'T UNDERSTAND ABANDONMENT. CAN I BRING THEM IN TO SEE HIM?" JERMAINE REPORTS THE DOGS DON'T BARK AND ARE NOT AGRESSIVE. THIS PC RN REVIEWED REQUEST FOR DOG VISIT WITH PRIMARY AND PAINTER MAINTENANCE. JERMAINE WILL BE BRINGING IN ONE DOG AT A TIME. COLABORATED WITH PROVIDER, PRIMARY RN, PAINTER MAINTENANCE, AND DANIA FROM [facility]. PC TO REMAIN AVAILABLE.
[2025-01-31 16:30] LABS: Anion Gap 7.0 mmol/L (3-11); Blood Urea Nitrogen 45.0 mg/dL (8-24); CO2, Blood 22.0 mmol/L (21-32); Calcium, Blood 7.7 mg/dL (8.5-10.1); Chloride, Blood 122.0 mmol/L (98-108); Creatinine, Blood 1.44 mg/dL (0.60-1.20); Glucose, Blood 123.0 mg/dL (70-99); Potassium, Blood 3.6 mmol/L (3.5-5.5); Sodium, Blood 147.0 mmol/L (136-145)
--- NOTE | 2025-01-31 17:14 | NUR ---
END OF SHIFT NOTE: PT REMAINS INTUBATED & UNRESPONSIVE. OFF SEDATION, RASS-5. PUPILS REACTIVE T/O SHIFT, LEFT PUPIL INTERMITTENTLY ROUND OR TEARDROP SHAPE. UNRESPONSIVE TO PAINFUL STIMULI. NO MOVEMENT OBSERVED. COUGH PRESENT, GAG ABSENT. SPO2 >90% ON VENT; CURRENT SETTINGS SPO 15/8 30%, RR 20'S, TV 400'S. THICK YELLOW/GREEN SPUTUM SUCTIONED VIA ETT. HR 60-70'S THIS AFTERNOON, SINUS RHYTHM W/ PVC'S ON MONITOR. BP 100-120'S, MAP >65. MILRINONE GTT TITRATED OFF, AMIO GTT OFF WHEN TRANSITIONED TO AMIO PT. CURRENT CORE TEMP 97.7, COOLING BLANKETS REMAIN IN PLACE. 3%NACL INFUSING PER EMAR. FENTANYL NEEDED FOR PAIN/VENT COMPLIANCE. BOYKIN CATH PATENT & DRAINING YELLOW URINE W/ SEDIMENT, 605ML OUTPUT THIS SHIFT OF TIME OF THIS NOTE. NO BM'S. PA CATH REMAINS INTACT TO RIJ, PICC TO SKIP INFUSING. TF INFUSING VIA OGT. ORAL CARE Q4HR VIA SUCTION, Q2HR REPOSITIONING. FAMILY AT BEDSIDE THIS AFTERNOON FOR MEETING W/ PHYSICIAN, PALLIATIVE CARE RN, & THIS RN. GOALS OF CARE DISCUSSED. PT IS DNR STATUS AT THIS TIME. FAMILY PLANS TO VISIT AGAIN TOMORROW MORNING.
[2025-01-31 18:51] LABS: Anion Gap 8.0 mmol/L (3-11); Blood Urea Nitrogen 43.0 mg/dL (8-24); CO2, Blood 22.0 mmol/L (21-32); Calcium, Blood 7.7 mg/dL (8.5-10.1); Chloride, Blood 122.0 mmol/L (98-108); Creatinine, Blood 1.35 mg/dL (0.60-1.20); Glucose, Blood 147.0 mg/dL (70-99); Potassium, Blood 3.6 mmol/L (3.5-5.5); Sodium, Blood 148.0 mmol/L (136-145)
--- NOTE | 2025-01-31 18:52 | NUR ---
UPDATE: THIS RN AT PT BEDSIDE THIS PM. MILD DECORTICATE POSTURING OBSERVED. PUPILS REMAIN EQUAL & SLUGGLISH, 3MM. CORNEAL REFLEX INTACT. COUGH PRESENT, GAG ABSENT. WILL UPDATE NOC RN.
--- NOTE | 2025-01-31 20:00 | NUR ---
ASSUMPTION OF CARE CARE OF PT ASSUMED FOLLOWING BEDSIDE SHIFT REPORT FROM DAY RN. PT LYING IN BED VENTILATED AND NOT SEDATED. PT NON RESPONSIVE WITH SOME REFLEXES INTACT (COUGH, CORNEAL, PUPIL). EXTENSOR POSTURATING NOTED WITH STIMULATION. TEMP IS 98.9 WITH COOLING BLANKET ON. SINUS RHYTHM IN THE 70'S WITH STABLE BP. SWAN CATHETER IN PLACE. CALCULATIONS PERFORMED AND NOTED IN CHART. CVP IS SUBTANTIALLY HIGHER THAN YESTERDAY AT 13, UP FROM 6. VENT SETTINGS: SPONT 15/8.0/30%. LUNG SOUNDS COARSE. TF STOPPED YESTERDAY DUE TO ASPIRATION EVENT BUT RESTARTED TODAY AND UP TO GOAL OF 40ML/HR. BOYKIN IN PLACE DRAINING SCANT URINE. WILL ASK PROVIDER ABOUT ADDING SOME FLUIDS THE ONLY INTAKE IS TF PLUS 30ML Q 4HR FLUSHES AND 3% NS AT 15ML/HR. HYPERTONIC INFUSING TO DECREASE CEREBRAL EDEMA. WILL REVIEW AND CONTINUE PLAN OF CARE.
[2025-01-31] MEDS ORDERED: NS 250 ML IV PRN (20:55)
[2025-01-31 23:17] LABS: Anion Gap 9.0 mmol/L (3-11); Blood Urea Nitrogen 39.0 mg/dL (8-24); CO2, Blood 21.0 mmol/L (21-32); Calcium, Blood 7.6 mg/dL (8.5-10.1); Chloride, Blood 123.0 mmol/L (98-108); Creatinine, Blood 1.19 mg/dL (0.60-1.20); Glucose, Blood 116.0 mg/dL (70-99); Potassium, Blood 3.8 mmol/L (3.5-5.5); Sodium, Blood 149.0 mmol/L (136-145)
[2025-02-01] VITALS (34 sets, daily range): BP systolic 115–149; BP diastolic 80–113
[2025-02-01] MEDS ORDERED: NS 1,000 ML IV SCH ×2 (03:00→17:25)
[2025-02-01] MEDS ORDERED: Piperacillin/Tazobactam Sod 3.375 GM in NS 100 ML IV ONE (03:40)
[2025-02-01 04:06] LABS: BASOPHILS ABSOLUTE AUTO 0.00 K/mm3 (0.00-0.23); BASOPHILS PERCENT AUTO 0 % (0-2); EOSINOPHILS ABSOLUTE AUTO 0.01 K/mm3 (0.00-0.68); EOSINOPHILS PERCENT AUTO 0 % (0-6); Hematocrit 37.1 % (37.0-53.0); Hemoglobin 12.3 g/dL (13.5-17.5); IMMATURE GRAN ABSOLUTE AUTO 0.02 K/mm3 (0.00-0.10); IMMATURE GRAN PERCENT AUTO 0 % (0-1); LYMPHOCYTES ABSOLUTE AUTO 0.74 K/mm3 (0.84-5.20); LYMPHOCYTES PERCENT AUTO 11 % (21-46); MONOCYTES ABSOLUTE AUTO 0.62 K/mm3 (0.16-1.47); MONOCYTES PERCENT AUTO 10 % (4-13); Mean Corpuscular HGB Conc 33.2 g/dL (31.5-36.5); Mean Corpuscular Volume 89 fL (80-100); NEUTROPHILS ABSOLUTE AUTO 5.11 K/mm3 (1.96-9.15); NEUTROPHILS PERCENT AUTO 79 % (41-73); NRBC ABSOLUTE 0.00 K/mm3 (0.00-0.02); NRBC Auto 0.0 /100 WBC (0.0-0.2); Platelet Count 186 K/mm3 (150-400); RDW Coefficient Variation 13.6 % (11.7-14.2); RDW Standard Deviation 44.5 fL (35.1-46.3)
[2025-02-01 04:24] LABS: Alanine Aminotransfer (ALT/SGP 107.0 U/L (12-78); Albumin, Blood 2.2 g/dL (3.4-5.0); Albumin/Globulin Ratio 0.5 (0.8-1.8); Anion Gap 8.0 mmol/L (3-11); Aspartate Aminotrans (AST/SGOT 148.0 U/L (12-37); Bilirubin, Total 0.8 mg/dL (0.1-1.0); Blood Urea Nitrogen 38.0 mg/dL (8-24); CO2, Blood 22.0 mmol/L (21-32); Calcium, Blood 8.0 mg/dL (8.5-10.1); Chloride, Blood 123.0 mmol/L (98-108); Creatinine, Blood 1.29 mg/dL (0.60-1.20); Globulin, Blood 4.2 g/dL (2.2-4.0); Glucose, Blood 109.0 mg/dL (70-99); Magnesium, Blood 2.4 mg/dL (1.6-2.4); Phosphorus, Blood 2.6 mg/dL (2.5-4.9); Potassium, Blood 3.6 mmol/L (3.5-5.5); Sodium, Blood 149.0 mmol/L (136-145); Total Protein, Blood 6.4 g/dL (6.4-8.2)
--- NOTE | 2025-02-01 07:42 | NUR ---
SHIFT SUMMARY PT LYING IN BED VENTILATED BUT NOT SEDATED. PT IS TREMULOUS ON RIGHT SIDE WITH AGONAL/HICCUP LIKE MOTIONS/BREATHING OBSERVED FOR MUCH OF SECOND HALF OF SHIFT. PT STILL HAS SOME REFLEXES INTACT (COUGH, CORNEAL, PUPIL) AND THERE WERE REPORTS OF EXTENSOR POSTURING THOUGH THIS RN DID NOT INVESTIGATE OR TRY TO STIMULATE SUCH MOVEMENTS. TMAX WAS 100.4 AND AVERAGE WAS 99.4 WITH COOLING BLANKET ON TOP OF PT ALL SHIFT. SEVERAL DOSES OF PRN FENTANYL WERE USED SEDATION ADJUNCT DURING SHIFT, WITH MINIMAL SUCCESS. PT STAYED IN SINUS RHYTHM IN THE 70'S WITH STABLE BP. VENT SETTINGS REMAINED SPONT ALL SHIFT WITH THE ONLY NOTABLE CHANGE BEING A DECREASE IN PRESSURE FROM 15 TO 10 FOLLOWING THE CUFF BEING INFLATED TO 40 TO SOLVE A LEAK ISSUE. THE PT'S RESP RATE STAYED IN THE HIGH TEENS TO MID 20'S MOST OF THE TIME WITH ONE EVENT WHEN IT INCREASED TO 50- DEEP SUCTIONING (THICK LUNA SECRETIONS) BROUGHT THE RATE BACK DOWN. OF NOTE, DURING EPIGLOTTAL SUCTIONING EARLY IN SHIFT, TUBE FEED LIKE SUBSTANCE WAS SUCTIONED. LATER, AFTER A DEEP SUCTIONING BY RT, THE PT COUGHED UP LARGE AMOUNTS OF A SIMILAR SUBSTANCE. CONSEQUENTLY, THE TF WAS TURNED OFF FOR THE LAST HALF OF SHIFT. 1 SMALL BM DURING SHIFT. URINE OUTPUT WAS SCANT, 25ML. NS WAS STARTED AT 75ML/HR X 1L AROUND 0300. HYPERTONIC SALINE IS INFUSING AT 15ML/HR, MORNING NA WAS 149, THE SAME THE PREVIOUS MORNING. BEDSIDE SHIFT REPORT GIVEN TO DAY RN.
--- NOTE | 2025-02-01 11:00 | NUR ---
AM NOTE: THIS RN ASSUMED CARE OF PT AT APPROX 0700, BEDSIDE REPORT FROM NOC RN. PT REMAINS INTUBATED & UNRESPONSIVE OFF SEDATION. RASS -5. PUPILS EQUAL & SLUGGISH BUT REACTIVE TO LIGHT. CORNEAL REFLEX INTACT. SLIGHT SHOULDER SHRUG TO BUE NAILBED PRESSURE, NO RESPONSE TO BLE STIMULI. UNABLE TO FOLLOW ANY COMMANDS. NO PURPOSEFUL MOVEMENT OBSERVED. SPO2 >90% ON VENT, SETTINGS SPO 10/8 30% W/ RR 20'S & TV 400-600'S. COPIOUS AMOUNTS OF THICK YELLOW SECRETIONS SUCTIONED VIA ETT. HR 70-80'S, SINUS RHYTHM ON MONITOR. SBP 110-130'S, MAP >65. COOLING BLANKETS REMAIN IN PLACE TO MAINTAIN CORE TEMP. BOYKIN CATH W/O ANY URINE OUTPUT EARLY THIS AM; BOYKIN FUSHED BY THIS RN & LARGE CLOT REMOVED. 850ML TEA COLORED URINE DRAINED. OGT CLAMPED AT THIS TIME. 3%NACL INFUSING AT 15ML/HR; NS INFUSING AT 75ML/HR. FAMILY AT BEDSIDE AT THIS TIME.
--- NOTE | 2025-02-01 11:21 | NUR ---
Spiritual care - call back. beauty shop manager updates short story writer. Bath Attendant enters room with non-responsive pt and brother from [place]. Brother open to confabulation and begins reflecting on pt's life and their special relationship. Brother processes well as he verbalizes hope, but also has a sense of reality that "it doesn't look good." Brother also sees self as to be there to support difficult decisions may have to make. Brother laughs appopriately at times and we discuss the mortality of life. Pt's spouse Ana enters room with one of thited sons. Ana graps pt's hand and says, "Squeeze my hand... you want to go home? Your dogs are waiting for you." Ana says, "One of his eyes are open." Ana is hopful and asks for the pt advocate that was previously scheduled for 10. Manager Water alerts RN of the request. At this point, Ana appears to focused on her thoughts to engage with build automation engineer in meaningful processing. Ana is respectful and courteous with her interactions and all voice gratitude for the visit.
[2025-02-01] MEDS ORDERED: Potassium Phos/Sodium Phos 250 MG PACK PO ONE (13:00)
[2025-02-01 13:53] LABS: Source, Urine Foley catheter
[2025-02-01 14:22] LABS: Bilirubin, Urine Neg (Neg); Glucose Qualitative, Urine Neg (Neg); Ketones, Urine 1+ (Neg); Leukocyte Esterase, Urine 2+ (Neg); Protein, Urine 3+ (Neg); Specific Gravity, Urine 1.020 (1.003-1.022); Urobilinogen, Urine NORM (Normal)
[2025-02-01 14:23] LABS: CORONAVIRUS COVID-19 AG Negative (NEGATIVE)
[2025-02-01 14:34] LABS: Color, Urine Yellow (P-Yellow)
[2025-02-01 14:41] LABS: Alanine Aminotransfer (ALT/SGP 104.0 U/L (12-78); Albumin, Blood 2.2 g/dL (3.4-5.0); Albumin/Globulin Ratio 0.5 (0.8-1.8); Amylase, Blood 136.0 U/L (25-115); Anion Gap 9.0 mmol/L (3-11); Aspartate Aminotrans (AST/SGOT 129.0 U/L (12-37); Bilirubin, Total 0.9 mg/dL (0.1-1.0); Blood Urea Nitrogen 42.0 mg/dL (8-24); CO2, Blood 19.0 mmol/L (21-32); Calcium, Blood 8.1 mg/dL (8.5-10.1); Chloride, Blood 128.0 mmol/L (98-108); Creatinine, Blood 1.44 mg/dL (0.60-1.20); Globulin, Blood 4.1 g/dL (2.2-4.0); Glucose, Blood 111.0 mg/dL (70-99); Potassium, Blood 3.4 mmol/L (3.5-5.5); Sodium, Blood 153.0 mmol/L (136-145); Total Protein, Blood 6.3 g/dL (6.4-8.2)
[2025-02-01 14:41] LABS: Red Blood Cells, Urine TNTC /hpf (0-2)
[2025-02-01 14:42] LABS: Prothrombin Time Results 11.8 Sec (9.7-11.5)
[2025-02-01 16:50] LABS: pH Blood Arterial 7.47 (7.35-7.45)
--- NOTE | 2025-02-01 18:04 | NUR ---
END OF SHIFT NOTE: PT REMAINS INTUBATED & OFF SEDATION. RASS -5. RIGHT PUPIL VERY SLUGGISH BUT REMAINS REACTIVE. NYSTAGMUS BILATERALLY. DECORTICATE POSTURING. INCREASED STIFFNESS NOTED TO BUE. COUGH PRESENT, GAG/SWALLOW ABSENT. REPEAT HEAD CT COMPLETED THIS AFTETRNOON. ART LINE PLACED TO LEFT RADIAL, SBP UP TO 170'S; DR. CARTER AWARE. PT GRIMACING & W/ INCREASED RR, ADMINISTERED FENTANYL PER EMAR; SBP DECREASED TO 140'S. HR 70-80'S, SINUS RHYTHM ON MONITOR. REPEAT ECHO COMPLETED THIS AM. SPO2 >90% ON VENT, SETTINGS SPO 10/8 30% W/ RR 20'S & TV 400-500'S. TMAX 100.4, COOLING BLANKETS & FAN IN PLACE. BOYKIN CATH REMAINS PATENT FOLLOWING IRRIGATION THIS AM, 1645ML QUINN/TEA OUTPUT THIS SHIFT. NO BM'S. TF RESTARTED VIA OGT PER DR. CARTER. NS INCREASED TO 125 ML/HR PER EMAR. 3% NACL ON STANDBY DUE TO HYPERNATREMIA PER ORDERS. FAMILY MEMBERS AT BEDSIDE LATE MORNING/EARLY AFTERNOON, UP TO DATE ON PLAN OF CARE.
--- NOTE | 2025-02-01 20:00 | NUR ---
ASSUMPTION OF CARE CARE OF PT ASSUMED FOLLOWING BEDSIDE SHIFT REPORT FROM DAY RN. PT LYING IN BED VENTILATED AND NOT SEDATED. PT NON RESPONSIVE WITH SOME REFLEXES INTACT (COUGH, CORNEAL, PUPIL). EXTENSOR POSTURATING NOTED WITH STIMULATION. TEMP IS 98.9 WITH COOLING BLANKET ON. SINUS RHYTHM IN THE 70'S WITH STABLE BP. SWAN CATHETER IN PLACE. CALCULATIONS PERFORMED AND NOTED IN CHART. ARTERIAL LINE IN PLACE OF TODAY IN LEFT WRIST. VENT SETTINGS: SPONT 10/8.0/30%. LUNG SOUNDS CLEAR. TF STOPPED YESTERDAY DUE TO POSSIBLE ASPIRATION EVENT BUT RESTARTED TODAY AND UP TO 25ML/HR. BOYKIN IN PLACE DRAINING YELLOW CLOUDY URINE. NS INFUSING AT 125ML/HR. 3% NS OFF AFTER LAST SODIUM OF 153- LATEST CT STILL SHOWS CEREBRAL EDEMA. FAMILY AND HAS SIGNED PAPERWORK SETTING UP POTENTIAL ORGAN DONATION IN A FEW DAYS. WILL REVIEW AND CONTINUE PLAN OF CARE.
[2025-02-01 20:26] LABS: pH Blood Arterial 7.46 (7.35-7.45)
[2025-02-01 20:45] LABS: BASOPHILS ABSOLUTE AUTO 0.01 K/mm3 (0.00-0.23); BASOPHILS PERCENT AUTO 0 % (0-2); EOSINOPHILS ABSOLUTE AUTO 0.03 K/mm3 (0.00-0.68); EOSINOPHILS PERCENT AUTO 0 % (0-6); Hematocrit 39.5 % (37.0-53.0); Hemoglobin 13.2 g/dL (13.5-17.5); IMMATURE GRAN ABSOLUTE AUTO 0.06 K/mm3 (0.00-0.10); IMMATURE GRAN PERCENT AUTO 1 % (0-1); LYMPHOCYTES ABSOLUTE AUTO 0.89 K/mm3 (0.84-5.20); LYMPHOCYTES PERCENT AUTO 11 % (21-46); MONOCYTES ABSOLUTE AUTO 0.85 K/mm3 (0.16-1.47); MONOCYTES PERCENT AUTO 10 % (4-13); Mean Corpuscular HGB Conc 33.4 g/dL (31.5-36.5); Mean Corpuscular Volume 88 fL (80-100); NEUTROPHILS ABSOLUTE AUTO 6.47 K/mm3 (1.96-9.15); NEUTROPHILS PERCENT AUTO 78 % (41-73); NRBC ABSOLUTE 0.00 K/mm3 (0.00-0.02); NRBC Auto 0.0 /100 WBC (0.0-0.2); Platelet Count 197 K/mm3 (150-400); RDW Coefficient Variation 13.7 % (11.7-14.2); RDW Standard Deviation 44.7 fL (35.1-46.3)
[2025-02-01 20:52] LABS: Prothrombin Time Results 11.7 Sec (9.7-11.5)
[2025-02-01 21:37] LABS: Alanine Aminotransfer (ALT/SGP 94.0 U/L (12-78); Albumin, Blood 2.0 g/dL (3.4-5.0); Albumin/Globulin Ratio 0.5 (0.8-1.8); Anion Gap 12.0 mmol/L (3-11); Aspartate Aminotrans (AST/SGOT 109.0 U/L (12-37); Bilirubin, Direct 0.4 mg/dL (0.0-0.3); Bilirubin, Total 0.8 mg/dL (0.1-1.0); Blood Urea Nitrogen 34.0 mg/dL (8-24); CO2, Blood 18.0 mmol/L (21-32); Calcium, Blood 7.5 mg/dL (8.5-10.1); Chloride, Blood 129.0 mmol/L (98-108); Creatinine, Blood 1.25 mg/dL (0.60-1.20); Globulin, Blood 4.0 g/dL (2.2-4.0); Glucose, Blood 117.0 mg/dL (70-99); Potassium, Blood 3.4 mmol/L (3.5-5.5); Sodium, Blood 156.0 mmol/L (136-145); Total Protein, Blood 6.0 g/dL (6.4-8.2)
[2025-02-02] VITALS (22 sets, daily range): BP systolic 104–142; BP diastolic 62–99
[2025-02-02 00:01] LABS: Source, Urine Foley catheter
[2025-02-02 00:04] LABS: Bilirubin, Urine Neg (Neg); Glucose Qualitative, Urine Neg (Neg); Ketones, Urine Neg (Neg); Leukocyte Esterase, Urine 2+ (Neg); Protein, Urine 2+ (Neg); Specific Gravity, Urine 1.015 (1.003-1.022); Urobilinogen, Urine NORM (Normal)
[2025-02-02 00:06] LABS: Color, Urine Yellow (P-Yellow)
[2025-02-02 03:21] LABS: Anion Gap 11.0 mmol/L (3-11); Blood Urea Nitrogen 38.0 mg/dL (8-24); CO2, Blood 19.0 mmol/L (21-32); Calcium, Blood 7.9 mg/dL (8.5-10.1); Chloride, Blood 130.0 mmol/L (98-108); Creatinine, Blood 1.07 mg/dL (0.60-1.20); Glucose, Blood 116.0 mg/dL (70-99); Potassium, Blood 3.7 mmol/L (3.5-5.5); Sodium, Blood 156.0 mmol/L (136-145)
--- NOTE | 2025-02-02 07:35 | NUR ---
SHIFT SUMMARY PT LYING IN BED VENTILATED BUT NOT SEDATED. PT STILL HAS SOME REFLEXES INTACT (COUGH, CORNEAL, PUPILS SLUGGISH WITH NYSTAGMUS) AND THERE WERE REPORTS OF EXTENSOR POSTURING THOUGH THIS RN DID NOT INVESTIGATE OR TRY TO STIMULATE SUCH MOVEMENTS. TMAX WAS 98.4 AND COOLING BLANKETS WERE REMOVED WHEN TEMP DROPPED TO 96.4. SEVERAL DOSES OF PRN FENTANYL WERE USED SEDATION ADJUNCT DURING SHIFT, WITH MINIMAL SUCCESS. PT STAYED IN SINUS RHYTHM IN THE 60'S WITH STABLE BP. VENT SETTINGS REMAINED SPONT ALL SHIFT WITH 3 APNEIC EVENTS WHEN THE VENT TOOK OVER. THE PT'S RESP RATE STAYED IN THE HIGH TEENS TO MID 20'S MOST OF THE TIME. JUST BEFORE SHIFT CHANGE, AFTER A DEEP SUCTIONING BY RT, THE PT COUGHED UP LARGE AMOUNTS OF YELLOW/LUNA SUBSTANCE AND TF WERE TURNED OFF. TF HAD BEEN RUNNING AT 25 ML/HR FOR ALL OF SHIFT. NO BM. URINE OUTPUT THROUGH BOYKIN 800 ML, YELLOW WITH CONSIDERABLE SEDIMENT. POTASSIUM WAS REPLACED FOLLOWING 1999 LABS FOR CLA. MAG AND PHOS WERE NOT ORDERED BUT I ADDED THOSE FOR THIS MORNING AND THE REMAINING DAYS. DAUGHTER CHRISTOPHER CALLED BEFORE SHIFT CHANGE FOR AN UPDATE, WHICH WAS OFFERED. SHE WAS TOLD THAT HER FATHER SEEMED MORE COMFORTABLE ON THE VENT THAN PREVIOUS SHIFT BUT THAT NEUROLOGICAL STATUS DID NOT IMPROVE. BEDSIDE SHIFT REPORT GIVEN TO ONCJOSE RAUL DAY RN.
[2025-02-02 08:28] LABS: Source, Urine Foley catheter
[2025-02-02 08:34] LABS: BASOPHILS ABSOLUTE AUTO 0.01 K/mm3 (0.00-0.23); BASOPHILS PERCENT AUTO 0 % (0-2); EOSINOPHILS ABSOLUTE AUTO 0.06 K/mm3 (0.00-0.68); EOSINOPHILS PERCENT AUTO 1 % (0-6); Hematocrit 36.6 % (37.0-53.0); Hemoglobin 12.0 g/dL (13.5-17.5); IMMATURE GRAN ABSOLUTE AUTO 0.06 K/mm3 (0.00-0.10); IMMATURE GRAN PERCENT AUTO 1 % (0-1); LYMPHOCYTES ABSOLUTE AUTO 0.77 K/mm3 (0.84-5.20); LYMPHOCYTES PERCENT AUTO 10 % (21-46); MONOCYTES ABSOLUTE AUTO 0.72 K/mm3 (0.16-1.47); MONOCYTES PERCENT AUTO 10 % (4-13); Mean Corpuscular HGB Conc 32.8 g/dL (31.5-36.5); Mean Corpuscular Volume 90 fL (80-100); NEUTROPHILS ABSOLUTE AUTO 5.77 K/mm3 (1.96-9.15); NEUTROPHILS PERCENT AUTO 78 % (41-73); NRBC ABSOLUTE 0.00 K/mm3 (0.00-0.02); NRBC Auto 0.0 /100 WBC (0.0-0.2); Platelet Count 188 K/mm3 (150-400); RDW Coefficient Variation 13.7 % (11.7-14.2); RDW Standard Deviation 45.4 fL (35.1-46.3)
[2025-02-02 08:35] LABS: Bilirubin, Urine Neg (Neg); Color, Urine Yellow (P-Yellow); Glucose Qualitative, Urine Neg (Neg); Ketones, Urine Neg (Neg); Leukocyte Esterase, Urine 2+ (Neg); Protein, Urine 2+ (Neg); Specific Gravity, Urine 1.015 (1.003-1.022); Urobilinogen, Urine NORM (Normal)
[2025-02-02 08:47] LABS: Prothrombin Time Results 11.5 Sec (9.7-11.5)
[2025-02-02 08:52] LABS: Alanine Aminotransfer (ALT/SGP 99.0 U/L (12-78); Albumin, Blood 1.9 g/dL (3.4-5.0); Albumin/Globulin Ratio 0.5 (0.8-1.8); Anion Gap 9.0 mmol/L (3-11); Aspartate Aminotrans (AST/SGOT 110.0 U/L (12-37); Bilirubin, Direct 0.4 mg/dL (0.0-0.3); Bilirubin, Total 0.7 mg/dL (0.1-1.0); Blood Urea Nitrogen 38.0 mg/dL (8-24); CO2, Blood 20.0 mmol/L (21-32); Calcium, Blood 7.6 mg/dL (8.5-10.1); Chloride, Blood 132.0 mmol/L (98-108); Creatinine, Blood 1.14 mg/dL (0.60-1.20); Globulin, Blood 4.0 g/dL (2.2-4.0); Glucose, Blood 127.0 mg/dL (70-99); Magnesium, Blood 2.6 mg/dL (1.6-2.4); Phosphorus, Blood 2.6 mg/dL (2.5-4.9); Potassium, Blood 3.6 mmol/L (3.5-5.5); Sodium, Blood 157.0 mmol/L (136-145); Total Protein, Blood 5.9 g/dL (6.4-8.2)
[2025-02-02 08:59] LABS: pH Blood Arterial 7.39 (7.35-7.45)
[2025-02-02 08:59] LABS: Red Blood Cells, Urine 50-100 /hpf (0-2); White Blood Cells, Urine 25-50 /hpf (0-5)
[2025-02-02 10:57] LABS: Vancomycin, Trough 10.1 ug/mL (5.0-10.0)
--- NOTE | 2025-02-02 11:54 | NUR ---
ASSUMED CARE AT 0700 PT LAYING IN BED INTUBATED BUT NOT SEDATED. PT HAS NO PURPOSFUL MOVEMENT, AND MINIMAL RESPONSE TO PAINFUL STIMULI; RIDGED LIMBS NOTED; NEGATIVE DOLLS EYES; COUGH PRESENT BUT NO GAG. VENT SETTINGS SPONTANIOUS WITH RR 20-30'S; HE CAN BECOME TACHYPNIC WHEN SUCTIONS; VENT SETTINGS SPONT 10/8, FIO2 30%, Vt 450-500. AFEBRILE. HR 60'S. SBP 100-110'S WITH MAP >65; ART TLINE TO LW WRIST IN PLACE AND PATENT. PA CATH REMOVED BY OCCUPATIONAL HEALTH NURSE MANAGER THIS AM. TF PLACED ON SB THIS AM AFTER PT STARTED COUGHING AND BILE/TF WAS SUCTIONS FROM HIS MOUTH; OG CLMAPED AT THIS TIME. BOYKIN IN PLACE AND DRAINING TO GRAVITY; SEDAMENT NOTED. NS INFUSING AT 125ML/HR. SEE SHIFT ASSESSMENT FOR FULL ASSESSMENT.
[2025-02-02 12:24] LABS: pH Blood Arterial 7.43 (7.35-7.45)
[2025-02-02 18:17] LABS: Anion Gap 6.0 mmol/L (3-11); Blood Urea Nitrogen 41.0 mg/dL (8-24); CO2, Blood 18.0 mmol/L (21-32); Calcium, Blood 8.2 mg/dL (8.5-10.1); Chloride, Blood 135.0 mmol/L (98-108); Creatinine, Blood 1.33 mg/dL (0.60-1.20); Glucose, Blood 114.0 mg/dL (70-99); Potassium, Blood 4.0 mmol/L (3.5-5.5); Sodium, Blood 155.0 mmol/L (136-145)
--- NOTE | 2025-02-02 18:41 | NUR ---
END OF SHIFT SUMMARY NO ACUTE EVENTS THIS SHIFT. PT CONT TO NOT FOLLOW DIRECTIONS AND NOT BE RESPONSIVE TO PAINFUL STIMULI; POSTURING NOTED DURING PERSONAL CARE; FENTANYL GIVEN TWICE FOR INCREASED RR. VENT SETTINGS CONT AT SPONTANIOUS 04/08, FIO2 30%; LARGE AMOUNT OF THICK SECREATIONS FROM BOTH ETT AND ORALLY. MAX TEMP 100.0. NSR WITH PVC'S NOTED AND RATE 50-70'S; SBP 100'S WITH MAP 60'S, BP INCREASES WITH STIMULATION; ART LINE TO LT WRIST IN PLACE AND PATENT. OG CLAMPED FOR MOST OF THE SHIFT RELATED TO COUGHING EPISODES WHERE BILE IS SUCTIONED OUT ORALLY. BOYKIN CHANGED THIS SHIFT D/T SEDAMENT OCCLUDING BOYKIN. SITE TO RIJ FROM PA CATH DRESSING SHOWS NO SIGNS OF BLEEDING OR HEMATOMA. SEVERAL FAMILY MEMBERS AT BEDSIDE TODAY INCLUDING PT , DAUGHTER, BROTHER, AND [id number]. NS INFUSING AT 125ML/HR. PICC TO RUE PATENT WITH DRESSING C/D/I. WILL REPORT TO PM RN WHEN AVAILABLE.
[2025-02-02] MEDS ORDERED: CefTRIAXone Sodium 1,000 MG in NS 100 ML IV SCH (19:00)
[2025-02-02 20:08] LABS: pH Blood Arterial 7.46 (7.35-7.45)
[2025-02-02 20:40] LABS: Source, Urine Foley catheter
[2025-02-02 20:43] LABS: Bilirubin, Urine Neg (Neg); Color, Urine Yellow (P-Yellow); Glucose Qualitative, Urine Neg (Neg); Ketones, Urine Neg (Neg); Leukocyte Esterase, Urine 1+ (Neg); Protein, Urine 2+ (Neg); Specific Gravity, Urine 1.015 (1.003-1.022); Urobilinogen, Urine NORM (Normal)
[2025-02-02 20:51] LABS: Red Blood Cells, Urine 50-100 /hpf (0-2)
[2025-02-02 20:58] LABS: Prothrombin Time Results 11.9 Sec (9.7-11.5)
[2025-02-02 21:03] LABS: Alanine Aminotransfer (ALT/SGP 106.0 U/L (12-78); Albumin, Blood 1.8 g/dL (3.4-5.0); Albumin/Globulin Ratio 0.5 (0.8-1.8); Anion Gap 10.0 mmol/L (3-11); Aspartate Aminotrans (AST/SGOT 106.0 U/L (12-37); Bilirubin, Direct 0.4 mg/dL (0.0-0.3); Bilirubin, Total 0.7 mg/dL (0.1-1.0); Blood Urea Nitrogen 38.0 mg/dL (8-24); CO2, Blood 19.0 mmol/L (21-32); Calcium, Blood 7.6 mg/dL (8.5-10.1); Chloride, Blood 134.0 mmol/L (98-108); Creatinine, Blood 1.3 mg/dL (0.60-1.20); Globulin, Blood 3.9 g/dL (2.2-4.0); Glucose, Blood 108.0 mg/dL (70-99); Magnesium, Blood 2.4 mg/dL (1.6-2.4); Phosphorus, Blood 2.8 mg/dL (2.5-4.9); Potassium, Blood 4.0 mmol/L (3.5-5.5); Sodium, Blood 159.0 mmol/L (136-145); Total Protein, Blood 5.7 g/dL (6.4-8.2)
[2025-02-03] VITALS: BP 120/79
--- NOTE | 2025-02-03 05:04 | NUR ---
SHIFT SUMMARY PT INTUBATEDAND UNRESPONSIVE. NEURO ASSESSMENTS REMAINED THE SIMILAR T/O SHIFT- + DOLLS EYES, - CORNEAL RESPONSE, +GAG/COUGH WITH SUCTIONING, DECORTICATE POSTURING IN UPPER EXTREMITIES, SLUGGISH PUPILARY RESPONSE, OVERBREATHING VENT WHEN STIMULATED. HR 49-70'S, MAPS >65, A-LINE ZEROED THIS SHIFT. VENT SETTINGS REMAINED THE SAME ON ACVC, SATS > 94%, LOTS OF SECRETIONS. TEMP BOYKIN DRAINING TO GRAVITY, FLUSHED TWICE R/T CLOGGING W/ SEDIMENT. TF STARTED AT 0000 ON TRICKLE FEEDS. FEVER OF 100.9 THIS SHIFT- ICE PACKS, FAN, COOL CLOTH AND TYLENOL GIVEN. TEMP CAME DOWN TO 98.7.
[2025-02-03 07:56] LABS: pH Blood Arterial 7.44 (7.35-7.45)
[2025-02-03 08:11] LABS: Source, Urine Foley catheter
[2025-02-03 08:15] LABS: BASOPHILS ABSOLUTE AUTO 0.02 K/mm3 (0.00-0.23); BASOPHILS PERCENT AUTO 0 % (0-2); EOSINOPHILS ABSOLUTE AUTO 0.11 K/mm3 (0.00-0.68); EOSINOPHILS PERCENT AUTO 1 % (0-6); Hematocrit 35.1 % (37.0-53.0); Hemoglobin 11.5 g/dL (13.5-17.5); IMMATURE GRAN ABSOLUTE AUTO 0.17 K/mm3 (0.00-0.10); IMMATURE GRAN PERCENT AUTO 2 % (0-1); LYMPHOCYTES ABSOLUTE AUTO 1.02 K/mm3 (0.84-5.20); LYMPHOCYTES PERCENT AUTO 10 % (21-46); MONOCYTES ABSOLUTE AUTO 0.88 K/mm3 (0.16-1.47); MONOCYTES PERCENT AUTO 9 % (4-13); Mean Corpuscular HGB Conc 32.8 g/dL (31.5-36.5); Mean Corpuscular Volume 91 fL (80-100); NEUTROPHILS ABSOLUTE AUTO 7.66 K/mm3 (1.96-9.15); NEUTROPHILS PERCENT AUTO 78 % (41-73); NRBC ABSOLUTE 0.00 K/mm3 (0.00-0.02); NRBC Auto 0.0 /100 WBC (0.0-0.2); Platelet Count 208 K/mm3 (150-400); RDW Coefficient Variation 14.0 % (11.7-14.2); RDW Standard Deviation 47.0 fL (35.1-46.3)
[2025-02-03 08:17] LABS: Bilirubin, Urine Neg (Neg); Color, Urine Yellow (P-Yellow); Glucose Qualitative, Urine Neg (Neg); Ketones, Urine Neg (Neg); Leukocyte Esterase, Urine 1+ (Neg); Protein, Urine 2+ (Neg); Specific Gravity, Urine 1.015 (1.003-1.022); Urobilinogen, Urine NORM (Normal)
[2025-02-03 08:29] LABS: Prothrombin Time Results 11.9 Sec (9.7-11.5)
[2025-02-03 08:35] LABS: Alanine Aminotransfer (ALT/SGP 115.0 U/L (12-78); Albumin, Blood 1.9 g/dL (3.4-5.0); Albumin/Globulin Ratio 0.5 (0.8-1.8); Anion Gap 8.0 mmol/L (3-11); Aspartate Aminotrans (AST/SGOT 116.0 U/L (12-37); Bilirubin, Direct 0.4 mg/dL (0.0-0.3); Bilirubin, Total 0.7 mg/dL (0.1-1.0); Blood Urea Nitrogen 36.0 mg/dL (8-24); CO2, Blood 20.0 mmol/L (21-32); Calcium, Blood 7.9 mg/dL (8.5-10.1); Chloride, Blood 135.0 mmol/L (98-108); Creatinine, Blood 1.2 mg/dL (0.60-1.20); Globulin, Blood 3.9 g/dL (2.2-4.0); Glucose, Blood 112.0 mg/dL (70-99); Magnesium, Blood 2.6 mg/dL (1.6-2.4); Phosphorus, Blood 3.2 mg/dL (2.5-4.9); Potassium, Blood 3.9 mmol/L (3.5-5.5); Sodium, Blood 159.0 mmol/L (136-145); Total Protein, Blood 5.8 g/dL (6.4-8.2)
--- NOTE | 2025-02-03 11:00 | NUR ---
AM NOTE: THIS RN ASSUMED CARE OF PT AT APPROX 0700, BEDSIDE REPORT FROM NOC RN. PT INTUBATED & UNRESPONSIVE THIS AM. OFF SEDATION. PUPILS EQUAL, ROUND, SLUGGISH. CORNEAL REFLEX AT START OF SHIFT PRESENT, ABSENT ON MD SUBSEQUENT ASSESSMENT. GAG ABSENT. DECORTICATE POSTURING TO BUE OBSERVED, POSTURING RESPONSE TO PHYSICAL STIMULI. BLE FLACCID, UNRESPONSIVE TO ALL STIMULI. SPO2 >90% ON VENT; SETTINGS AC/VC 16/500/8/30%. LARGE AMOUNT OF THICK YELLOW YELLOW SPUTUM SUCTIONED VIA ETT. HR 50-80'S, SINUS RHYTHM W/ PVC'S ON MONITOR. A-LINE SBP 120-170'S. CORE TEMP <100. BOYKIN CATH PATENT & DRAINING YELLOW URINE W/ SEDIMENT. OGT CLAMPED DUE TO VOMITING; SMALL AMOUNT OF BROWN VOMIT SUCTIONED THIS AM. LARGE NUMBER OF FAMILY MEMBERS AT BEDSIDE EXPRESSING CONCERN THAT PT IS "OPENING HIS EYES AND TRACKING ME" AND "HE'S SQUEEZING MY HAND." DR. MIGUEL AT BEDSIDE TO DISCUSS REFLEXIVE MOVEMENTS AND CURRENT NEURO EXAM. FAMILY MEMBERS DISCUSSING GOALS OF CARE AT THIS TIME.
--- NOTE | 2025-02-03 12:09 | NUR ---
Spiritual Care Visit. Several family members are present. Pts. spouse and a sister who had just arrived from out of town were observing eye movement in the Pt. and displayed evidence of hope of his recovery. Will remain available.
[2025-02-03] MEDS ORDERED: FentaNYL Citrate 50 MCG/ML 2 ML Injection IV ONE (17:30)
--- NOTE | 2025-02-03 18:18 | NUR ---
END OF SHIFT NOTE: PT REMAINS UNRESPONSIVE THIS SHIFT. PUPILS MINIMALLY REACTIVE TO LIGHT THIS AFTERNOON. DECORTICATE POSTURING REMAINS PRESENT. COUGH & GAG ABSENT. DOLLS EYES POSITIVE. NYSTAGMUS NOTED. HR 40-50'S, SINUS YUDI ON MONITOR; ATROPINE AT BEDSIDE FOR HR <40. A-LINE SBP 110-170'S, MAP >65. SPO2 >90% ON VENT; SETTINGS AC/VC 16/500/8/30%. PT STOPPED OVERBREATHING VENT FOR SEVERAL HOURS THIS AFTERNOON; CURRENT RR 20'S. FENTANYL ADMINISTERED FOR PT COMFORT PER EMAR. BOYKIN CATH REMAINS PATENT W/ YELLOW URINE OUTPUT. 1 BM SMEAR. OGT CLAMPED DUE TO VOMITING. LR INFUSING AT 100ML/HR. FAMILY UP TO DATE ON PLAN OF CARE.
[2025-02-03 19:59] LABS: LACTATE DEHYDROGENASE - 1 50 % (14-27); LACTATE DEHYDROGENASE - 2 31 % (29-42); LACTATE DEHYDROGENASE - 3 10 % (18-30); LACTATE DEHYDROGENASE - 4 3 % (8-15); LACTATE DEHYDROGENASE - 5 6 % (6-23); LACTATE DEHYDROGENASE,TOTAL 1154 U/L (105-230)
[2025-02-03 20:19] LABS: pH Blood Arterial 7.43 (7.35-7.45)
[2025-02-03 20:39] LABS: Prothrombin Time Results 12.2 Sec (9.7-11.5)
[2025-02-03 20:45] LABS: Magnesium, Blood 2.7 mg/dL (1.6-2.4); Phosphorus, Blood 3.4 mg/dL (2.5-4.9)
[2025-02-03 22:43] LABS: Source, Urine Foley catheter
[2025-02-03 22:47] LABS: Bilirubin, Urine Neg (Neg); Glucose Qualitative, Urine Neg (Neg); Ketones, Urine Neg (Neg); Leukocyte Esterase, Urine 1+ (Neg); Protein, Urine 1+ (Neg); Specific Gravity, Urine 1.015 (1.003-1.022); Urobilinogen, Urine NORM (Normal)
[2025-02-03 22:51] LABS: Color, Urine Yellow (P-Yellow)
[2025-02-03 22:55] LABS: Red Blood Cells, Urine 25-50 /hpf (0-2)
--- NOTE | 2025-02-04 05:16 | NUR ---
SHIFT SUMMARY PT HAD NO CHANGES T/O SHIFT. REMAINS UNRESPONSIVE, RIDING VENT MOST OF SHIFT W/ SOME OVERBREATHING OF VENT DURING TURNS. DECORTICATE POSTURING IN BUE. VS REMAINED STABLE. TMAX 99.6F. NO BM. BOYKIN DRAINING TO GRAVITY. NO ACUTE EVENTS. PLAN FOR DCD THIS AM.
[2025-02-04 07:14] LABS: Alanine Aminotransfer (ALT/SGP 115.0 U/L (12-78); Albumin, Blood 1.8 g/dL (3.4-5.0); Albumin/Globulin Ratio 0.5 (0.8-1.8); Anion Gap 7.0 mmol/L (3-11); Aspartate Aminotrans (AST/SGOT 97.0 U/L (12-37); Bilirubin, Total 0.6 mg/dL (0.1-1.0); Blood Urea Nitrogen 34.0 mg/dL (8-24); CO2, Blood 22.0 mmol/L (21-32); Calcium, Blood 7.8 mg/dL (8.5-10.1); Chloride, Blood 134.0 mmol/L (98-108); Creatinine, Blood 1.29 mg/dL (0.60-1.20); Globulin, Blood 3.8 g/dL (2.2-4.0); Glucose, Blood 109.0 mg/dL (70-99); Magnesium, Blood 2.5 mg/dL (1.6-2.4); Phosphorus, Blood 3.8 mg/dL (2.5-4.9); Potassium, Blood 4.1 mmol/L (3.5-5.5); Sodium, Blood 159.0 mmol/L (136-145); Total Protein, Blood 5.6 g/dL (6.4-8.2)
[2025-02-04 07:27] LABS: Prothrombin Time Results 12.0 Sec (9.7-11.5)
[2025-02-04 08:00] LABS: BASOPHILS ABSOLUTE AUTO 0.01 K/mm3 (0.00-0.23); BASOPHILS PERCENT AUTO 0 % (0-2); EOSINOPHILS ABSOLUTE AUTO 0.19 K/mm3 (0.00-0.68); EOSINOPHILS PERCENT AUTO 2 % (0-6); Hematocrit 33.7 % (37.0-53.0); Hemoglobin 10.7 g/dL (13.5-17.5); IMMATURE GRAN ABSOLUTE AUTO 0.20 K/mm3 (0.00-0.10); IMMATURE GRAN PERCENT AUTO 2 % (0-1); LYMPHOCYTES ABSOLUTE AUTO 1.26 K/mm3 (0.84-5.20); LYMPHOCYTES PERCENT AUTO 13 % (21-46); MONOCYTES ABSOLUTE AUTO 0.74 K/mm3 (0.16-1.47); MONOCYTES PERCENT AUTO 8 % (4-13); Mean Corpuscular HGB Conc 31.8 g/dL (31.5-36.5); Mean Corpuscular Volume 92 fL (80-100); NEUTROPHILS ABSOLUTE AUTO 7.49 K/mm3 (1.96-9.15); NEUTROPHILS PERCENT AUTO 76 % (41-73); NRBC ABSOLUTE 0.00 K/mm3 (0.00-0.02); NRBC Auto 0.0 /100 WBC (0.0-0.2); Platelet Count 210 K/mm3 (150-400); RDW Coefficient Variation 13.9 % (11.7-14.2); RDW Standard Deviation 47.1 fL (35.1-46.3)
[2025-02-04 08:21] LABS: Prothrombin Time Results 11.9 Sec (9.7-11.5)
[2025-02-04 08:23] LABS: pH Blood Arterial 7.43 (7.35-7.45)
[2025-02-04 08:57] LABS: Source, Urine Foley catheter
[2025-02-04 09:01] LABS: Bilirubin, Urine Neg (Neg); Color, Urine Yellow (P-Yellow); Glucose Qualitative, Urine Neg (Neg); Ketones, Urine Neg (Neg); Leukocyte Esterase, Urine 1+ (Neg); Protein, Urine 1+ (Neg); Specific Gravity, Urine 1.015 (1.003-1.022); Urobilinogen, Urine NORM (Normal)
[2025-02-04] MEDS ORDERED: HYDROmorphone HCl/Pf 1MG SYR IV PRN (09:20)
[2025-02-04] MEDS ORDERED: Morphine Sulfate 10 MG/ML 1MLSYR IV PRN (09:20)
[2025-02-04] MEDS ORDERED: Atropine Sulfate 1% Opth Soln 2ML BTL SL PRN (09:20)
[2025-02-04] MEDS ORDERED: Morphine Sulfate 20 MG/1ML 1 ML Oral Syringe SL PRN (09:20)
[2025-02-04] MEDS ORDERED: Morphine Sulfate 10 MG/ML 1MLSYR INH PRN (09:20)
[2025-02-04] MEDS ORDERED: Diazepam 5 MG / ML 2ML SYR IV PRN (09:30)
[2025-02-04] MEDS ORDERED: HEPARIN SODIUM IV ONE (10:00)
--- NOTE | 2025-02-04 12:00 | NUR ---
FINAL DISCHARGE: THIS RN ASSUMED CARE OF PT AT APPROX 0700. SEE SHIFT ASSESSMENT FOR DETAILS. PT ARRIVED IN OPERATING ROOM AT 1024. PT WAS EXTUBATED AT 1114 BY RT, DR. MIGUEL PRESENT FOR EXTUBATION. COMFORT CARE MEDICATIONS ADMINISTERED PER EMAR & DR. MIGUEL VERBAL ORDERS. FAMILY PRESENT. TIME OF 1131, PRONOUNCED BY DR. MIGUEL. PT REMAINED IN OPERATING ROOM FOR ORGAN DONATION.
--- NOTE | 2025-02-04 15:46 | NUR ---
02/04/25 SUMEET MONSIVAIS ORGAN HARVEST INITIATED AND COMPLETED WITH TRANSPLANT TEAM. FAMILY VIEWED PATIENT IN OR FOR TERMINAL EXTUBATION, PATIENT PASSED ~17 MINUTES POST EXTUBATION. tRANSPLANT TEAM PROCEEDED WITH LIVER, KIDNEYS, AND PANCREAS TAKEN. PATIENT TRANSFERED BACK TO ICU 12 FOLLOWING PROCEDURE FOR POST-MORTEM CARE.
== END 2025-02-04 16:50 ==
LOC: ER 10:47 → ICUE 12:11
PROVIDERS: Internal Medicine Critical Care Medicine; Student in an Organized Health Care Education/Training Program; ADMIT Internal Medicine
PROC: 5A1955Z Respiratory Ventilation, Greater than 96 Consecutive Hours (ICD-10-PCS; principal; 2025-01-28)
PROC: 5A2204Z Restoration of Cardiac Rhythm, Single (ICD-10-PCS; 2025-01-28)
PROC: 5A12012 Performance of Cardiac Output, Single, Manual (ICD-10-PCS; 2025-01-28)
PROC: 0BH17EZ Insertion of Endotracheal Airway into Trachea, Via Natural or Artificial Opening (ICD-10-PCS; 2025-01-28)
PROC: 02HV33Z Insertion of Infusion Device into Superior Vena Cava, Percutaneous Approach (ICD-10-PCS; 2025-01-28)
PROC: 3E033XZ Introduction of Vasopressor into Peripheral Vein, Percutaneous Approach (ICD-10-PCS; 2025-01-28)
PROC: 4A133R1 Monitoring of Arterial Saturation, Peripheral, Percutaneous Approach (ICD-10-PCS; 2025-01-28)
PROC: 0T9B70Z Drainage of Bladder with Drainage Device, Via Natural or Artificial Opening (ICD-10-PCS; 2025-01-28)
PROC: 0DH67UZ Insertion of Feeding Device into Stomach, Via Natural or Artificial Opening (ICD-10-PCS; 2025-01-28)
PROC: B2111ZZ Fluoroscopy of Multiple Coronary Arteries using Low Osmolar Contrast (ICD-10-PCS; 2025-01-28)
PROC: 4A023N6 Measurement of Cardiac Sampling and Pressure, Right Heart, Percutaneous Approach (ICD-10-PCS; 2025-01-29)
PROC: 02HQ32Z Insertion of Monitoring Device into Right Pulmonary Artery, Percutaneous Approach (ICD-10-PCS; 2025-01-29)
PROC: 4A133B3 Monitoring of Arterial Pressure, Pulmonary, Percutaneous Approach (ICD-10-PCS; 2025-01-29)
PROC: 4A1239Z Monitoring of Cardiac Output, Percutaneous Approach (ICD-10-PCS; 2025-01-29)
PROC: 4A00X4Z Measurement of Central Nervous Electrical Activity, External Approach (ICD-10-PCS; 2025-01-30)
PROC: 3E03329 Introduction of Other Anti-infective into Peripheral Vein, Percutaneous Approach (ICD-10-PCS; 2025-01-31)
PROC: 03HY32Z Insertion of Monitoring Device into Upper Artery, Percutaneous Approach (ICD-10-PCS; 2025-02-01)
PROC: 4A133B1 Monitoring of Arterial Pressure, Peripheral, Percutaneous Approach (ICD-10-PCS; 2025-02-01)
PROC: 4A133J1 Monitoring of Arterial Pulse, Peripheral, Percutaneous Approach (ICD-10-PCS; 2025-02-01)
PROC: 30233N1 Transfusion of Nonautologous Red Blood Cells into Peripheral Vein, Percutaneous Approach (ICD-10-PCS; 2025-02-04)
DX: I49.01 Ventricular fibrillation (principal); G93.41 Metabolic encephalopathy; I21.29 ST elevation (STEMI) myocardial infarction involving other sites; G93.6 Cerebral edema; J96.01 Acute respiratory failure with hypoxia; J15.5 Pneumonia due to Escherichia coli; Z51.5 Encounter for palliative care; Z66 Do not resuscitate; J69.0 Pneumonitis due to inhalation of food and vomit; N17.0 Acute kidney failure with tubular necrosis; G93.1 Anoxic brain damage, not elsewhere classified; E87.0 Hyperosmolality and hypernatremia; E87.4 Mixed disorder of acid-base balance; I46.2 Cardiac arrest due to underlying cardiac condition; R57.0 Cardiogenic shock; N40.0 Benign prostatic hyperplasia without lower urinary tract symptoms; E87.6 Hypokalemia; I10 Essential (primary) hypertension; E11.65 Type 2 diabetes mellitus with hyperglycemia; I27.22 Pulmonary hypertension due to left heart disease; I47.20 Ventricular tachycardia, unspecified; I42.9 Cardiomyopathy, unspecified; R74.01 Elevation of levels of liver transaminase levels; K21.9 Gastro-esophageal reflux disease without esophagitis; D64.9 Anemia, unspecified; Z87.891 Personal history of nicotine dependence; Z79.82 Long term (current) use of aspirin; Z79.02 Long term (current) use of antithrombotics/antiplatelets; Z52.9 Donor of unspecified organ or tissue; Z78.1 Physical restraint status
CPT/HCPCS: 31500; 36415; 36569; 36600; 36620; 51702; 70450; 71045; 71250; 71260; 74176; 76937; 80047; 80048; 80053; 80061; 80202; 81001; 82150; 82164; 82248; 82330; 82803; 82947; 83036; 83615; 83625; 83690; 83735; 83880; 84100; 84132; 84295; 84443; 84484; 85014; 85025; 85520; 85610; 85651; 85730; 86140; 86850; 86900; 86901; 86923; 87040; 87070; 87077; 87086; 87186; 87205; 87426-QW; 92950; 93005; 93010; 93306; 93308; 93321; 93451; 93454; 94002; 94003; 94762; 95819; 99291-25; A9270; C1751; C1769; C1887; C1894; C8929; J0165; J0282; J0295; J0461; J0696; J1644; J1938; J2250; J2260; J2270; J2371; J2470; J2543; J2704; J3010; J3246; J3360; J3373; J3475; J3480; J7030; J7040; J7050; J7060; J7070; J7120; P9016; Q9957; Q9967

== ENCOUNTER 2025-02-01 12:44 | Inpatient (IN) | payer OTHER ==
[~2025-02-01 12:44] MED LIST changes: +AMLO5 PO; +TADA10TA PO
== END 2025-02-04 11:31 | DRG 443 ==
LOC: SURS 12:44 → SDS 12:45 → EDSTATUS 02-04 10:10 → SURS 02-04 11:31 → SDS 02-04 11:31 → PLD 02-04 12:07 → EDSTATUS 02-04 14:54 → SDS 02-04 23:00
PROVIDERS: ADMIT Surgery
DX: Z52.6 Liver donor (principal); Z52.4 Kidney donor
CPT/HCPCS: 36620; 51702; 70450; 71045; 71250; 74176; 80048; 80053; 80202; 81001; 82150; 82248; 82803; 82947; 83036; 83615; 83625; 83690; 83735; 84100; 84295; 85025; 85610; 85730; 86850; 86900; 86901; 86923; 87040; 87086; 87426-QW; 88331; 93306; 94003; A9270; C1751; J0696; J1644; J2270; J2470; J2543; J3010; J3360; J3373; J3480; J7030; J7040; J7050; J7070; J7120; P9016